=== PATIENT | male | born 1950 | race Caucasian/White ===

== ENCOUNTER 2019-04-28 08:31 | Inpatient (IN) ==
--- NOTE | 2019-04-28 09:09 | EKG Report ---
Test Performed on : 04/28/2019 09:04:58 AM Test Reason : sob Blood Pressure : / mmHG Vent. Rate : 081 BPM Atrial Rate : 081 BPM P-R Int : 142 ms QRS Dur : 116 ms QT Int : 432 ms P-R-T Axes : 110 027 153 degrees QTc Int : 501 ms Normal sinus rhythm. ST & T wave abnormality, consider inferolateral ischemia Prolonged QT Abnormal ECG When compared with ECG of 27-JUN-2018 13:19, Nonspecific T wave abnormality has replaced inverted T waves in Inferior leads Nonspecific T wave abnormality has replaced inverted T waves in Anterior leads QT has lengthened Unconfirmed Result
[2019-04-28 09:35] LABS: BASO# 0.03 X1000 (0.0-0.2); BASO% 0.3 % (0.0-0.8); EOS# 0.24 X1000 (0.0-0.7); EOS% 2.5 % (0.0-10.0); HEMATOCRIT 46.4 % (42.0-52.0); HEMOGLOBIN 15.3 g/dL (14.0-18.0); LYMPH# 1.26 X1000 (1.2-3.4); LYMPH% 12.9 % (20.5-51.1); MCH 28.7 PG (27-31); MCV 86.9 FL (81-99); MONO# 1.04 X1000 (0.11-0.59); MONO% 10.7 % (1.7-9.3); MPV 10.6 FL (7.4-10.4); NEUT# 7.16 X1000 (1.4-6.5); NEUT% 73.6 % (42.2-75.2); PLT 198 X1000 (130-400); RBC 5.34 XMIL (4.7-6.1); RDW 13.1 % (11.5-14.5); WBC 9.73 X1000 (4.8-10.8)
[2019-04-28 09:41] LABS: INR 1.12; PROTIME 14.5 Seconds (11.0-16.0)
[2019-04-28 09:42] LABS: PTT 29.1 Seconds (22.3-41.8)
--- NOTE | 2019-04-28 09:47 | Diag Imaging Result Doc PS360 ---
CHEST-1 VIEW - 04/28/2019 INDICATION: sob COMPARISON: 06/28/2018 FINDINGS: Stable sternotomy wires. There is mild cardiomegaly and today's exam. Pulmonary vascularity is grossly normal. No infiltrates or significant edema. Lungs are somewhat hyperexpanded suggesting COPD. IMPRESSION: Cardiomegaly. Mild COPD. Electronically signed by Clarence Coats 04/28/2019 9:45 AM
[2019-04-28 10:04] LABS: ALB/GLOB RATIO 1.4; ALBUMIN 4.1 g/dL (3.5-5.0); CREATININE 1.5 mg/dL (0.7-1.2); POTASSIUM 4.2 mmol/L (3.5-5.1); TOTAL BILIRUBIN 0.91 mg/dL (0.20-1.00)
[2019-04-28] MEDS: LASIX IV ONE ×3 (10:48→10:54)
[2019-04-28] MEDS ORDERED: DUONEB (A & A) INH ONE (11:01)
--- NOTE | 2019-04-28 11:09 | PROVIDER DOCUMENTATION ---
This chart was entered by Yanely Mckeon Scribe, acting as scribe for Daniel Ayers MD. HPI-Respiratory General - General Chief Complaint: Shortness of Breath Stated Complaint: SOB,CHF Time Seen by Provider: 04/28/19 09:12 Source: patient Allergies/Adverse Reactions: Patient Allergies Allergy/AdvReac Type Severity Reaction Status Date / Time Penicillins Allergy Unknown Verified 04/28/19 09:25 Home Medications: Home Medication List Medication Instructions Recorded Confirmed Last Taken Type Insulin Glargine [Basaglar] 12 unit SUBQ BID #1 insuln.pen 02/11/18 04/28/19 06/25/18 20:00 Rx Aspirin 81 mg PO DAILY #30 chewtab 03/01/18 04/28/19 06/25/18 07:00 Rx Carvedilol [Coreg] 6.25 mg PO Q12HR #60 tab 06/28/18 04/28/19 Unknown Rx Furosemide [Lasix] 40 mg PO DAILY #90 tab 06/28/18 04/28/19 Unknown Rx LISINOpril [Prinivil] 10 mg PO DAILY #90 tab 06/28/18 04/28/19 Unknown Rx Insulin Glargine,Hum.rec.anlog 6 units SQ QHS 04/28/19 04/28/19 Unknown History [Lantus Solostar] - History of Present Illness-Resp Nature of Presenting Problem: 69 yom presents to the ed with worsening sob with exertion. pt sts has hx of CHF and COPD and has O2 @ home but has noted last few days he has been wearing more often. pt on exam is nontoxic in appearance Quality of Pain: reports: none Severity in ED: reports: mild Onset/Duration: reports: 3 days ago Timing: reports: intermittent, getting worse Exposure: reports: unknown cause Cough Quality/Degree: reports: no cough Episode Frequency: frequent episodes Current Respiratory Medication Therapy: Initiated see nurses note Modifying Factors: improves with: oxygen, rest, sitting upright. worse with: exertion Associated Symptoms: reports: shortness of breath, wheezing. denies: chest pain/soreness, cough, fever/chills, heart racing Similar Symptoms Previously?: Yes (hx of chf and copd) Recently seen or treated by another doctor?: No Review of Systems - Adult - REVIEW OF SYSTEMS - ADULT Constitutional: denies: chills, fever Eyes: reports: no symptoms reported Ears, Nose, Mouth & Throat: reports: no symptoms reported Cardiovascular: denies: chest pain, palpitations, syncope Respiratory: reports: see HPI, dyspnea on exertion, shortness of breath, wheezing. denies: cough Gastrointestinal: denies: abdominal pain, diarrhea, nausea, vomiting Genitourinary: reports: no symptoms reported Musculoskeletal: reports: no symptoms reported Integumentary: reports: no symptoms reported Neurological: denies: dizziness/vertigo, headache/migraines Psychiatric: reports: no symptoms reported Endocrine: reports: no symptoms reported Hematologic/Lymphatic: reports: no symptoms reported Allergic/Immunologic: reports: no symptoms reported All Other Systems: Reviewed and Negative Past History - Adult - PAST MEDICAL HISTORY-ADULT Review of Records: reports: Old Records Reviewed, Nursing Assessment Review, Medications Reviewed, Social history reviewed & non-contributory. Major Childhood Illnesses: reports: denies history Cardiovascular: reports: CAD, CHF, HTN, hyperlipidemia, [place] Respiratory: reports: COPD Gastrointestinal: reports: denies history Genitourinary: reports: denies history Musculoskeletal: reports: denies history Hand Dominance: Right Handed Neurological: reports: denies history Psychiatric: reports: denies history Endocrine/Immune: reports: Diabetes Diabetes Type: Type 2 Other Conditions: reports: denies history - PRIOR SURGERIES/PROCEDURES Surgical/Procedure History: reports: appendectomy, CABG, cardiac stent, tonsillectomy, orthopedic (extremity) - IMMUNIZATION STATUS Childhood Immunizations: See Nurse Assessment Flu Vaccine: See Nurse Assessment - FAMILY HISTORY Family History: reviewed, not pertinent - SOCIAL HISTORY Smoking: quit greater than 1 year Substance Use: alcohol Alcohol Use Frequency: once a week Number of drinks per typical drinking period:: 2 drinks Living Situation: family Physical Exam-General - PHYSICAL EXAM-ADULT Initial Vital Signs Reviewed: Yes - CONSTITUTIONAL General Appearance: appears well, alert, no apparent distress - EYES Eyes: PERRL/EOMI, pink conjunctivae - HEAD, EARS, NOSE, MOUTH & THROAT HENMT: moist mucous membranes - NECK Neck: non-tender, full range of motion, supple, normal inspection - RESPIRATORY Respiratory: chest non-tender, wheezing (rt side only) - CARDIOVASCULAR Cardiovascular: normal peripheral pulses, regular rate, rhythm - CHEST (BREASTS) Chest/Breast: other (well healed CABG scar) - GASTROINTESTINAL (ABDOMEN) Abdominal Exam: normal bowel sounds, non tender, soft, no organomegaly, no pulsatile mass - GENITOURINARY Male Genitalia: deferred Rectal Exam: deferred Hemoccult Exam: deferred - LYMPHATIC Lymphatic: no adenopathy - MUSCULOSKELETAL Back Exam: normal inspection, no CVA tenderness, no vertebral tenderness Extremity: normal range of motion, non-tender, normal gait, normal inspection, no pedal edema, no calf tenderness, normal capillary refill - SKIN Integumentary: normal color, normal turgor, warm/dry - NEUROLOGIC Neurologic: grossly normal - PSYCHIATRIC Psych/Mental Status: normal mood/affect, normal thought content, normal thought process, oriented x 3 - HEART Score HEART Score: History: Slightly Suspicious HEART Score: ECG: Non-Specific Repolarization Disturbance/LBBB/PM HEART Score: Age: > or = 65 Years HEART Score: Risk Factors for Atherosclerotic Disease: > or = 3 Risk Factors or History of Atherosclerotic Disease HEART Score: Troponin: < or = Normal Limit Total HEART Score:: 5 Progress - PLAN OF CARE/RESULTS Progress/Plan/Lab Results: Vital Signs - 8 hr 04/28/19 08:37 04/28/19 09:07 04/28/19 09:21 Temperature 97.8 F Pulse Rate 88 85 Respiratory Rate 20 19 Blood Pressure 187/94 191/122 O2 Sat by Pulse Oximetry 93 L 93 L 92 L 04/28/19 09:30 04/28/19 09:31 04/28/19 09:40 Temperature Pulse Rate 83 81 78 Respiratory Rate 27 H 23 22 Blood Pressure 173/105 173/105 O2 Sat by Pulse Oximetry 96 97 98 Laboratory Results - last 24 hr 04/28/19 04/28/19 04/28/19 09:20 09:20 09:20 WBC 9.73 RBC 5.34 Hgb 15.3 Hct 46.4 MCV 86.9 MCH 28.7 MCHC 33.0 RDW Std Deviation 13.1 Plt Count 198 MPV 10.6 H Immature Gran % (Auto) 0.0 Neut % (Auto) 73.6 Lymph % (Auto) 12.9 L Greenlee % (Auto) 10.7 H Eos % (Auto) 2.5 Baso % (Auto) 0.3 Immature Gran # (Auto) 0.00 Neut # (Auto) 7.16 H Lymph # (Auto) 1.26 Greenlee # (Auto) 1.04 H Eos # (Auto) 0.24 Baso # (Auto) 0.03 PT INR PTT (Actin FS) Sodium 138 Potassium 4.2 Chloride 97 L Carbon Dioxide 28 Anion Gap 13 BUN 16 Creatinine 1.5 H Estimated GFR/1.73 m2 47 BUN/Creatinine Ratio 11 Glucose 145 H Calculated Osmolality 279 Calcium 9.0 Total Bilirubin 0.91 AST 11 ALT 14 Alkaline Phosphatase 81 Troponin T [id number] Pept 8941 H Total Protein 7.0 Albumin 4.1 Globulin 2.9 Albumin/Globulin Ratio 1.4 04/28/19 04/28/19 09:20 09:20 WBC RBC Hgb Hct MCV MCH MCHC RDW Std Deviation Plt Count MPV Immature Gran % (Auto) Neut % (Auto) Lymph % (Auto) Greenlee % (Auto) Eos % (Auto) Baso % (Auto) Immature Gran # (Auto) Neut # (Auto) Lymph # (Auto) Greenlee # (Auto) Eos # (Auto) Baso # (Auto) PT 14.5 INR 1.12 PTT (Actin FS) 29.1 Sodium Potassium Chloride Carbon Dioxide Anion Gap BUN Creatinine Estimated GFR/1.73 m2 BUN/Creatinine Ratio Glucose Calculated Osmolality Calcium Total Bilirubin AST ALT Alkaline Phosphatase Troponin T 0.055 [id number]-Zlvqrvimqek Pept Total Protein Albumin Globulin Albumin/Globulin Ratio Orders Category Date Time Status CHEST-1 VIEW [RAD] Stat Exams 04/28/19 09:06 Completed CBC WITH ELECTRONIC DIFF [HEME] Stat Lab 04/28/19 09:20 Completed COMPREHENSIVE METABOLIC PANEL [CHEM] Stat Lab 04/28/19 09:20 Completed PRO B-NATRIURETIC PEPTIDE Stat Lab 04/28/19 09:20 Completed PROTIME WITH INR [COAG] Stat Lab 04/28/19 09:20 Completed PTT [COAG] Stat Lab 04/28/19 09:20 Completed TROPONIN T Stat Lab 04/28/19 09:20 Completed TROPONIN T Stat Lab 04/28/19 11:04 Ordered Albuterol 2.5MG/Ipratrop 0.5MG [Duoneb (A & A)] Med 04/28/19 11:01 Discontinued 3 ml INH NOW ONE Furosemide [Lasix] Med 04/28/19 10:35 Discontinued 40 mg IV NOW ONE Aerosol Treatments Routine Oth 04/28/19 11:01 Active Aerosol Treatments Stat Oth 04/28/19 11:01 Active EKG [EKG] Stat Ther 04/28/19 09:06 Draft Result Diagrams: 04/28/19 09:20 04/28/19 09:20 - REASSESSMENT Reassessment #1 Time Reassessed: 10:33 Status: improving - EKG 1 Time of EKG reading by physician:: 09:04 EKG Read and Signed by:: Daniel Ayers EKG Interpretation (*Must complete 3 of following elements*): Abnormal Rate: 81 Rhythm: nsr Holstein: normal QRS: other (prolonged QT) NV Interval: normal Comments: st and t wave abnormality, consider inferolateral ischemia - XRAY 1 XRAY: Bilateral XRAY Study: Chest Impression: See EMR Report (CHEST-1 VIEW - 04/28/2019 INDICATION: sob COMPARISON: 06/28/2018 FINDINGS: Stable sternotomy wires. There is mild cardiomegaly and today's exam. Pulmonary vascularity is grossly normal. No infil trates or significant edema. Lungs are somewhat hyperexpanded suggesting COPD. IMPRESSION: Cardiomegaly. Mild COPD. Electronically signed by Clarence Coats 04/28/2019 9:45 AM 04/28/19 0945 Interpreting Physician: Clarence Coats MD Dictated Date/Time: 04/28/19943 cc: Daniel Ayers MD; Scotty Aguilar MD) - CONSULTS/PCP/HOSPITALIST Notification #1 *Consult/PCP/Hospitalist*: hospitalist dr ortiz Time Discussed: 11:03 Consult Disposition: Will see in ED, Admit Departure - Departure Date of Disposition Decision: 04/28/19 Time of Disposition Decision: 11:09 DIAGNOSIS: Acute exacerbation of CHF (congestive heart failure), CAD (coronary artery disease), Dyspnea on exertion, COPD (chronic obstructive pulmonary disease) Disposition: ADMITTED INPATIENT 09 Certified Medical Emergency: Emergent Condition: Fair Referrals and Follow-Ups: Scotty Aguilar MD [Primary Care Provider] - - Critical Care Note This patient required my direct & personal management of CC.: No Attestation - Physician/ ALVIN Attestation Patient care was provided by Advanced Practice Provider:: No The physician spent face to face time with patient:: Yes Advanced Practice Provider documentation review:: Supervising physician onsite and consulted in the evaluation and care of this patient. The physician did have a face to face encounter with the patient. This chart was documented by the indicated scribe, (Yanely Mckeon Scribe) and accurately reflects the services I performed and decisions made by me, Daniel Ayers MD, as attested by the provider's signature.
--- NOTE | 2019-04-28 12:24 | HISTORY AND PHYSICAL ---
PRIMARY CARE PHYSICIAN: Dr. Scotty Aguilar. CHIEF COMPLAINT: Shortness of breath that worsens with exertion over the past several days that progressively worsened. HISTORY OF PRESENTING ILLNESS: This is a 69-year-old male who presents to [facility] with complaints of worsening shortness of breath over the last few days that is worse with exertion. Has home O2 as needed and has noted over the past couple of days has been wearing it more often. Has a history of congestive heart failure and COPD. Workup showed a proBNP of 8941 which is up from his last in June 2018, was 1202. His previous echocardiogram was done on 06/26/2018 that showed an ejection fraction of 25 to 30 percent with severely reduced systolic function. He noted some abdominal distention and weight gain over the last several days as well, so he will be admitted for further evaluation and treatment. PAST MEDICAL HISTORY: CAD, CHF, diabetes type 2, hypertension, chronic kidney disease, and COPD. PAST SURGICAL HISTORY: CABG, tonsillectomy, appendectomy, and bilateral knee arthroscopy. FAMILY HISTORY: Coronary artery disease in his father. SOCIAL HISTORY: Currently lives with family, is a former smoker and denies any alcohol or illicit drug use. ALLERGIES: Penicillin. HOME MEDICATIONS: Current list will be obtained, reconciled, reviewed and restarted as appropriate. LABORATORY DATA: Showed a white blood cell count of 9.73, hemoglobin 15.3, hematocrit 46.4, platelets 198,000. PT and INR of 14.5 and 1.12. Sodium 138, potassium 4.2, chloride 97, CO2 28, BUN of 16, creatinine 1.5, glucose 145. Troponin was 0.055. ProBNP of 8941. IMAGING: Chest x-ray showed cardiomegaly and mild COPD. EKG showed normal sinus rhythm at 81. REVIEW OF SYSTEMS: He denied any fever, chills, blurred vision, dizziness, chest pain, coughing. He was positive for shortness of breath that worsened with exertion. Denied any abdominal pain but has noted some abdominal distention. Denied any nausea, vomiting, constipation, diarrhea, burning or hurting with urination. PHYSICAL EXAMINATION: VITAL SIGNS: On arrival, had a temperature of 97.8 degrees, pulse 88, respirations 20, blood pressure 187/94, saturating 93% on room air. GENERAL: This is a 69-year-old male who is lying in the bed and answers questions appropriately. HEENT: Normocephalic, atraumatic. Normal ENT inspection. Oropharynx and nares are clear. EYES: Pupils are equal, round, and reactive to light and accommodation. Extraocular movements are intact. NECK: Normal inspection, normal range of motion. LUNGS: Clear to auscultation bilaterally with equal lung expansion and chest wall movement. HEART: Regular rate and rhythm. No murmurs, rubs, or gallops. ABDOMEN: Soft. It was mildly distended, mildly firm. Bowel sounds were present x4 quadrants. MUSCULOSKELETAL: He had 5/5 strength x4 extremities. NEUROLOGICAL: The cranial nerves 2-12 appear grossly intact. ASSESSMENT: 1. An acute systolic congestive heart failure exacerbation. 2. Malignant hypertension. 3. Diabetes type 2. 4. Chronic obstructive pulmonary disease, history of, not in exacerbation currently. PLAN: He will be admitted, placed on telemetry, O2 per protocol, healthy heart diet. We will check an echocardiogram today. Apply SCDs for DVT prophylaxis. Place him on Lasix 40 mg IV q.12. We will continue home medications. Place him on hydralazine 10 mg IV q.4 hours p.r.n. for systolic greater than 190, diastolic greater than 100, and will recheck a CBC, BMP in the a.m. Further orders after seen by attending. Dictated by TAQUERIA Braga for Andrew Silva MD cc: TAQUERIA Braga MD Wayne E. Thomas, MD
[2019-04-28] MEDS ORDERED: ZOFRAN IV PRN (12:33)
[2019-04-28] MEDS ORDERED: TYLENOL PO PRN (12:33)
[2019-04-28] MEDS ORDERED: APRESOLINE IV PRN (12:33)
[2019-04-28] MEDS: LASIX IV SCH ×2 (12:53→21:06)
[2019-04-28] MEDS ORDERED: COZAAR PO SCH (16:15)
--- NOTE | 2019-04-28 17:46 | CARDIOLOGY CONSULTATION ---
DATE: 04/28/2019 CHIEF COMPLAINT ON PRESENTATION: Shortness of breath. HISTORY OF PRESENT ILLNESS: Mr. Weber is a 69-year-old male with a history of an ischemic cardiomyopathy, who for the last month has been having more shortness of breath than baseline. He reports that over the last 24 to 48 hours it has gotten significantly worse, such that last night he had to get up and sit in the recliner because he was getting short of breath lying in bed. He denies any overt chest pain. He has not been compliant with his lisinopril in the last 3 days secondary to cough. He has continued to take his diuretic and his Coreg. There has been some dietary indiscretion, specifically with eating a hamburger that was marinated in Bernardo's sauce on Saturday evening. PAST MEDICAL HISTORY: 1. Significant for ischemic cardiomyopathy. He has a history of coronary bypass performed in 2013 with a vein graft to the LAD, vein graft to a D1, and a vein graft to an OM 1. He has not had a catheterization since that time. His last stress test was in November of 2015. This was a rest study showing an EF of 63%. No evidence of systolic dysfunction or diastolic dysfunction identified. Echocardiogram in February of 2018 showed an EF of 40 to 45%. 2. Hypertension. 3. Hyperlipidemia. 4. Diabetes. 5. History of chronic kidney disease. SOCIAL HISTORY: Former smoker. Denies any alcohol or illicit drugs. FAMILY HISTORY: Coronary disease in his father. REVIEW OF SYSTEMS: A 10 system review of systems is negative except for those things mentioned in the HPI. PHYSICAL EXAMINATION: Vital Signs: Patient is afebrile. Heart rate of 81. His blood pressure is 179/88. His presenting blood pressure here was 187/94. General: He is in no acute distress. HEENT: Oropharynx is moist. Poor dentition. Eye examination shows pink conjunctivae, white sclerae. Neck: Examination shows no obvious thyromegaly or thyroid tenderness. Cardiovascular: He sounds to be in a regular rate and rhythm. He has no obvious murmurs. He has no S3. He has no lower extremity edema. His neck veins do appear to be somewhat distended. Chest: Sounds relatively clear. He has no increased work of breathing. Abdomen: Soft, nontender, nondistended. He has no obvious organomegaly. Skin: Warm and dry throughout without any rashes. Neurological: He is moving all extremities well. He has no lateralizing deficits. Psychiatric: Alert, oriented, pleasant. Normal mood and affect. PERTINENT DATA: His chest x-ray shows cardiomegaly with mild COPD changes. His electrocardiogram demonstrates a sinus rhythm, nonspecific diffuse ST-T changes. They are most likely consistent with LVH type changes. This does not look significantly different from previous EKG in 2018. His laboratory data demonstrates a white count of 9.7, hematocrit 46, platelet count 198,000. His INR is 1.1. His sodium is 138, potassium 4.2, BUN 16, creatinine is 1.5. His proBNP is 8,941. Cardiac enzymes negative thus far. ASSESSMENT: Mr. Weber is a 69-year-old gentleman with a history of ischemic cardiomyopathy. He presents in acute heart failure. PLAN: He has been changed from lisinopril to losartan which I agree with given his, what sounds like LETY inhibitor induced allergy. His last ejection fraction was above 40% by echo so he does not qualify for Entresto at this time. But we will recheck an echocardiogram. I would recommend continuation of his beta eva as he is already on. IV diuretics have been ordered, as well as the Aldactone. Laboratories checked in the morning including a proBNP. cc: Maninder Sanches MD
--- NOTE | 2019-04-28 18:53 | HISTORY AND PHYSICAL ---
ADDENDUM: I have seen and examined Mr. Michaels today. The son was at the bedside at the time of the encounter. Mr. Michaels gets admitted because of worsening shortness of breath associated with exertion and also PND and orthopnea. He was brought into the Emergency. He came to the emergency department himself today where he was also found to be remarkably hypertensive with a blood pressure of 187/94. He was saturating in the 93. Initial imaging studies revealed that his chest x-ray shows some mild pulmonary congestion and cardiomegaly. His pro B is remarkably elevated ever than before. Mr. Michaels is being admitted for congestive heart failure exacerbation. He also has a history of severe coronary artery disease status post CABG. The neck was supple with mild JVD. Chest - air entry was bilaterally reduced. There was some diffuse crackles in posterior lung arnold. Cardiovascular - regular rate and rhythm. I did not hear any murmur. There is an old sternotomy scar on the anterior abdominal wall. Abdomen was soft, distended but nontender. Extremities - there was no pedal edema. Good perfusion. Laboratory data has been reviewed. CBC is completely unremarkable. Chemistry shows creatinine of 1.5 which is his baseline. The pro B is 8941. ASSESSMENT: 1. Acute hypoxemic respiratory distress secondary to pulmonary edema. 2. Acute on chronic congestive heart failure. 3. Chronic cough, most likely due to angiotensin-converting enzyme inhibitor therapy. We have changed the lisinopril to losartan. 4. Severe uncontrolled hypertension. The patient's lisinopril has been changed to losartan. We have also started him back on his carvedilol and we have added spironolactone for a better blood pressure control. 5. History of coronary artery disease status post coronary artery bypass graft. 6. Ischemic cardiomyopathy, status post coronary artery bypass graft. The patient follows up with Dr. Quigley. 7. The patient is also a diabetic and up upon his review we have not seen him on any statin medications, so we have added Crestor. 8. Chronic kidney disease stage 3a to b noted. Please refer to the details of the H P which has been dictated by the CHOREOGRAPHY DIRECTOR in the chart. I have reviewed it and I agree with the content. I have also explained my findings and the plan with the patient and the son who were both at the bedside at the time of the encounter. cc: Andrew Silva MD
[2019-04-28] MEDS: ALDACTONE PO SCH (19:20)
[2019-04-28] MEDS: COREG PO SCH (20:30)
[2019-04-28] MEDS ORDERED: ENTRESTO 24 MG-26 MG TABLET PO SCH (21:00)
[2019-04-28] MEDS ORDERED: LANTUS INSULIN SUBQ SCH (21:00)
[2019-04-28] MEDS: LANTUS INSULIN SUBQ SCH (21:06)
[2019-04-29 06:41] LABS: BASO# 0.03 X1000 (0.0-0.2); BASO% 0.4 % (0.0-0.8); EOS# 0.31 X1000 (0.0-0.7); EOS% 3.8 % (0.0-10.0); HEMATOCRIT 46.5 % (42.0-52.0); HEMOGLOBIN 15.4 g/dL (14.0-18.0); LYMPH% 24.5 % (20.5-51.1); MCH 28.9 PG (27-31); MCHC 33.1 g/dL (33-37); MCV 87.4 FL (81-99); MONO# 1.12 X1000 (0.11-0.59); MONO% 13.7 % (1.7-9.3); MPV 10.6 FL (7.4-10.4); NEUT# 4.71 X1000 (1.4-6.5); NEUT% 57.6 % (42.2-75.2); PLT 216 X1000 (130-400); RBC 5.32 XMIL (4.7-6.1); RDW 13.1 % (11.5-14.5); WBC 8.17 X1000 (4.8-10.8)
[2019-04-29 07:06] LABS: CALCIUM 8.4 mg/dL (8.8-10.2); CREATININE 1.7 mg/dL (0.7-1.2); POTASSIUM 3.5 mmol/L (3.5-5.1)
[2019-04-29] MEDS ORDERED: PRINIVIL PO SCH (09:00)
[2019-04-29] MEDS ORDERED: COZAAR PO SCH ×2 (09:00)
--- NOTE | 2019-04-29 09:04 | ECHO REPORT ---
ORDER DATE: 04/28/2019 MEASUREMENTS: Septal thickness 1.4, left ventricular internal diameter in diastole 5.2, aortic root 2.9, left atrium 4.4. SUMMARY: 1. Technically difficult study due to limited acoustic window quality. 2. Aortic valve is trileaflet and opens normally on 2-dimensional images. The peak gradient across the aortic valve is less than 5 mmHg. Mitral and tricuspid valves are without evidence of structural abnormality with very mild mitral regurgitation. The pulmonic valve was not well demonstrated. The aortic root is normal in size. 3. Normal left ventricular chamber size with [id number] concentric left ventricular hypertrophy is demonstrated. Estimated left ventricular ejection fraction is approximately 20% in the setting of severe global hypokinesis. Doppler suggests grade 1 left ventricular diastolic function. The left atrium is mildly enlarged. The right atrium and right ventricle are normal in size with grossly preserved right ventricular systolic function. 4. No pericardial effusion. 5. Appearance of the inferior vena cava suggests normal central venous pressure. cc: MD Yashira Brown CRNP
[2019-04-29] MEDS: LASIX IV SCH (10:05)
[2019-04-29] MEDS: ASPIRIN PO SCH (10:07)
[2019-04-29] MEDS: COREG PO SCH ×2 (10:08→20:42)
[2019-04-29] MEDS: ALDACTONE PO SCH (10:08)
[2019-04-29] MEDS: CRESTOR PO SCH (10:09)
--- NOTE | 2019-04-29 13:36 | CARDIOLOGY PROGRESS NOTE ---
DATE: 04/29/2019 SUBJECTIVE: Mr. Michaels reports that he feels better. He is not having any orthopnea. The patient is lying down at this point and denies any overt orthopnea. He has no lower extremity edema. PHYSICAL EXAMINATION: Vital Signs: He is afebrile. Heart rate is 73, blood pressure 139/74. His input and output do not appear to be accurate, as there are a number of voids not measured, not counted for. General: No acute distress. Cardiovascular: He sounds to be in a regular rate and rhythm. He has no murmurs. He has no S3. He has no lower extremity edema. Chest: His chest exam sounds clear bilaterally. He has no increased work of breathing. Abdomen: His abdomen is soft, nontender, nondistended. He has no obvious organomegaly. PERTINENT DATA: His sodium is 138, potassium 3.5, BUN 20, creatinine is 1.7. His proBNP is 7590, which is down from 8941. His echocardiogram yesterday demonstrated an EF of 20% with severe global hypokinesis. ASSESSMENT: Mr. Weber is a 69-year-old gentleman with a history of an ischemic cardiomyopathy. PLAN: We will continue on current medications with the exception of I have stopped the losartan and changed him over to Entresto based on his reduced EF. We will continue him on the Coreg, as well as his spironolactone. Laboratories checked will be checked in the morning. It would likely be reasonable to discharge him in the morning if he continues on this trended. cc: Maninder Sanches MD
--- NOTE | 2019-04-29 15:43 | PROGRESS NOTE ---
DATE: 04/29/2019 SUBJECTIVE: This morning Mr. Weber refers to be doing a lot better. Denies any new complaints. OBJECTIVE: Vital signs: Blood pressure is 139/74, pulse of 73, respiration is 19, temperature 97.7 degrees. The patient is saturating 94% on room air. General: Mr. Weber is a 69-year- old gentleman. He is in bed, not seemingly distressed. HEENT: Mucosa is pink and moist. Anicteric. Acyanotic. Neck: Supple. Chest: Good air entry bilateral. There were no crepitations, no rhonchi. Cardiovascular: Regular rate and rhythm. No murmurs, no rubs, no gallops. GI: Abdomen was soft, nontender. Bowel sounds present. Extremities: No pedal edema. LINUX SYSTEM ADMIN: Patient is awake, alert, and oriented. Musculoskeletal: The patient does have does have an old sternotomy scar on the anterior chest wall. LABORATORY DATA: CBC is normal. Creatinine is slightly up to 1.7. His pro B is down to 7590. An echocardiogram which was done yesterday report shows ejection fraction is 20% in the setting of global hypokinesis. There is a Doppler that suggests grade 1 left ventricle dysfunction. Left atrium is mildly enlarged. The right side seems to be unremarkable. CURRENT MEDICATIONS: Have also been reviewed. The patient's Lasix has been decreased to once daily dosing. Losartan has been changed to Entresto. ASSESSMENT: 1. Acute hypoxemic respiratory failure on presentation, secondary to pulmonary edema, improved. 2. Acute on chronic congestive heart failure. Ejection fraction is 20%. The patient has been switched to Entresto. We will continue with the other heart medications. 3. Chronic cough, suspected to be due to LETY inhibitor [lisinopril] side effects. Medication has been discontinued. 4. Severe uncontrolled hypertension on presentation. The patient's admission blood pressure was 187/94. It actually went at some point to 191/122. This has gradually been titrated down. His current blood pressure is 139/74. We are going to continue with the current medications including Entresto, Coreg, and spironolactone. 5. History of coronary artery disease status post CABG noted. 6. Dyslipidemia. Patient is on Crestor. 7. Diabetes mellitus on Lantus at home. Glucose within normal ranges. 8. CKD stage 3A noted. PLAN: In general, Mr. Weber got admitted because of shortness of breath, has been found to be in congestive heart failure. He is currently on IV diuretic therapy. His lisinopril has been switched to Entresto currently. His blood pressure was also extremely high on presentation which has progressively gotten better. Cardiology recommends to observe him one more day on the new regimen and if he continues to tolerate it and is hemodynamically stable, then he will be okay to be discharged tomorrow. Mr. Weber's pro B has decreased as well. cc: Andrew Silva MD
[2019-04-29] MEDS: LANTUS INSULIN SUBQ SCH (20:43)
[2019-04-30 07:44] LABS: AGAP 16; BUN 29 mg/dL (8-22); CHLORIDE 96 mmol/L (98-107); CHOLESTEROL 182 mg/dL (0-200); COSMO 280; CREATININE 1.7 mg/dL (0.7-1.2); ESTIMATED GFR 40; GLUCOSE 137 mg/dL (70-104); HDL 29 mg/dL (35-55); LDL 133 mg/dL; MAGNESIUM 2.2 mg/dL (1.5-2.7); POTASSIUM 3.6 mmol/L (3.5-5.1); SODIUM 136 mmol/L (136-145); TCO2 24 mmol/L (25-35); TRIGLYCERIDES 102 mg/dL (39-160); VLDL 20 mg/dL
[2019-04-30] MEDS ORDERED: LASIX IV SCH (09:00)
[2019-04-30] MEDS ORDERED: ENTRESTO 24 MG-26 MG TABLET PO SCH (09:00)
[2019-04-30] MEDS: CRESTOR PO SCH (09:21)
[2019-04-30] MEDS: ALDACTONE PO SCH (09:21)
[2019-04-30] MEDS: ASPIRIN PO SCH (09:21)
[2019-04-30] MEDS: COREG PO SCH (09:21)
[2019-04-30 16:06] VITALS: BP 145/84
[2019-04-30] MEDS ORDERED: ENTRESTO 49 MG-51 MG TABLET PO SCH (21:00)
--- NOTE | 2019-04-30 21:31 | CARDIOLOGY PROGRESS NOTE ---
DATE: 04/30/2019 SUBJECTIVE: Mr. Weber has no complaints. His breathing is much better. He is not having any orthopnea. OBJECTIVE: He is afebrile. Heart rate 71, blood pressure 139/76. General: He is in no acute distress. Cardiovascular: He sounds to be in a regular rate and rhythm. He has no obvious murmurs. He has no S3. No lower extremity edema. Chest: Sounds clear bilaterally. He has no increased work of breathing. Abdomen: Soft, nontender. PERTINENT DATA: Sodium is 136, potassium 3.6, BUN 29, creatinine is 1.7. His proBNP is 2306, which is down from 8941 on presentation. His LDL is 133. ASSESSMENT: Mr. Weber is a 69-year-old male who presented in a heart failure exacerbation that was likely secondary to noncompliance with his lisinopril secondary to cough as well as dietary sodium excess. PLAN: The patient was discontinued off his lisinopril, which again he had not been taking for a few days. He was initiated on Entresto. His carvedilol and spironolactone were continued. He was placed on IV diuretics. The patient diuresed quite well. Presently, he is stable for discharge. I have discussed this with the primary team. He will have a followup basic metabolic panel in one week and will follow up with Dr. Quigley in three to four weeks. cc: Maninder Sanches MD
--- NOTE | 2019-05-01 05:38 | DISCHARGE SUMMARY ---
ADMISSION DATE: 04/28/2019 DISCHARGE DATE: 04/30/2019 PRIMARY CARE PHYSICIAN: Dr. Scotty Aguilar. CONSULTATIONS: Cardiology. ADMISSION DIAGNOSES: 1. An acute systolic congestive heart failure exacerbation. 2. Malignant hypertension. 3. Diabetes type 2. 4. History of chronic obstructive pulmonary disease, not currently in exacerbation. DISCHARGE DIAGNOSES: 1. Acute hypoxemic respiratory failure on presentation secondary to pulmonary edema, improved. 2. An acute on chronic congestive heart failure. 3. Chronic cough, suspected to be due to an LETY inhibitor lisinopril side effects. 4. Severe, uncontrolled hypertension on presentation. 5. Dyslipidemia. 6. Diabetes type 2. 7. Chronic kidney disease stage III-A. SUMMARY OF FINDINGS: This is a 69-year-old male who presented to the emergency room with complaints of shortness of breath over the last few days that worsened with exertion. Has home O2 as needed and has noted over the past couple of days needing to use it more. His proBNP was 8941. His previous echocardiogram done on 06/26/2018 showed an ejection fraction of 25 to 30 percent with severely reduced systolic function. He was noted to have some abdominal distention and weight gain over the past several days. Blood pressure was elevated at 187/94 on arrival. He was admitted. We consulted Cardiology, obtained an echocardiogram that showed an ejection fraction approximately 20% in the setting of severe global hypokinesis, normal left ventricular chamber size with [id number] concentric left ventricular hypertrophy was demonstrated. He was diuresed well. Cardiology stopped the losartan and changed him to Entresto based on his reduced EF, continued him on his Coreg as well as his spironolactone. He is feeling much better and it is felt that he can safely be discharged home today. DISCHARGE MEDICATIONS: Include aspirin 81 mg p.o. daily, Coreg 6.25 mg p.o. q.12 hours, Lantus 6 units subcutaneous at bedtime, rosuvastatin 20 mg p.o. daily, Entresto 49/51 mg p.o. b.i.d., Aldactone 12.5 mg p.o. daily, Lasix 40 mg p.o. daily. FOLLOWUP: He will follow up with Dr. Maninder Sanches, preflight mechanic, on 06/03/2019 at 2:15 p.m. and with his primary care physician in the next 1 to 2 weeks and call their office for an appointment. All discharge instructions have been reviewed with the patient. He verbalized understanding. TIME SPENT: A 35 minute discharge. Dictated by TAQUERIA Braga for Jeffery Bo MD cc: TAQUERIA Braga MD Wayne E. Thomas, MD Peter Johnson, MD
== END 2019-04-30 16:45 | disposition home or self-care (01) | DRG 291 ==
LOC: ED 08:31 → SUATTDRO 12:06 → EDIPHOLD 12:06 → 4N 13:44
PROVIDERS: ATTEND Internal Medicine

== ENCOUNTER 2019-07-07 22:23 | Inpatient (IN) ==
[2019-07-07] MEDS ORDERED: ASPIRIN PO ONE (22:49)
[2019-07-07] MEDS ORDERED: HUMULIN R IV ONE (22:56)
[2019-07-07] MEDS ORDERED: LASIX IV ONE (22:56)
[2019-07-07 23:03] LABS: BASO# 0.04 X1000 (0.0-0.2); BASO% 0.4 % (0.0-0.8); EOS# 0.36 X1000 (0.0-0.7); EOS% 3.2 % (0.0-10.0); HEMATOCRIT 45.8 % (42.0-52.0); HEMOGLOBIN 15.9 g/dL (14.0-18.0); IMM GRAN# 0.02 X1000 (0.0-0.04); IMM GRAN% 0.2 % (0.0-0.5); LYMPH# 2.63 X1000 (1.2-3.4); LYMPH% 23.6 % (20.5-51.1); MCH 28.6 PG (27-31); MCHC 34.7 g/dL (33-37); MCV 82.4 FL (81-99); MONO# 1.02 X1000 (0.11-0.59); MONO% 9.1 % (1.7-9.3); MPV 10.6 FL (7.4-10.4); NEUT# 7.08 X1000 (1.4-6.5); NEUT% 63.5 % (42.2-75.2); PLT 241 X1000 (130-400); RBC 5.56 XMIL (4.7-6.1); RDW 12.5 % (11.5-14.5); WBC 11.15 X1000 (4.8-10.8)
[2019-07-07 23:25] LABS: ALB/GLOB RATIO 1.4; ALBUMIN 4.2 g/dL (3.5-5.0); CALCIUM 9.2 mg/dL (8.8-10.2); CREATININE 1.8 mg/dL (0.7-1.2); POTASSIUM 4.7 mmol/L (3.5-5.1); TOTAL BILIRUBIN 0.25 mg/dL (0.20-1.00); TOTAL PROTEIN 7.2 g/dL (6.3-8.3)
[2019-07-07 23:30] LABS: INR 1.01; PROTIME 13.4 Seconds (11.0-16.0)
[2019-07-07 23:31] LABS: PTT 27.2 Seconds (22.3-41.8)
--- NOTE | 2019-07-08 00:10 | PROVIDER DOCUMENTATION ---
This chart was entered by Nick Self Scribe, acting as scribe for Ruma Ayoub MD. HPI-Respiratory General - General Chief Complaint: Shortness of Breath Stated Complaint: TROUBLE BREATHING Time Seen by Provider: 07/07/19 22:50 Source: patient Allergies/Adverse Reactions: Patient Allergies Allergy/AdvReac Type Severity Reaction Status Date / Time Penicillins Allergy Unknown Verified 04/28/19 09:25 Home Medications: Home Medication List Medication Instructions Recorded Confirmed Last Taken Type Aspirin 81 mg PO DAILY #30 chewtab 03/01/18 04/28/19 04/27/19 08:00 Rx Carvedilol [Coreg] 6.25 mg PO Q12HR #60 tab 06/28/18 04/28/19 04/27/19 20:00 Rx Furosemide [Lasix] 40 mg PO DAILY #90 tab 06/28/18 04/28/19 04/28/19 04:00 Rx Insulin Glargine,Hum.rec.anlog 6 units SQ QHS 04/28/19 04/28/19 04/27/19 22:00 History [Lantus Solostar] ROSUVAstatin [Crestor] 20 mg PO DAILY #90 tab 04/30/19 Unknown Rx Sacubitril/Valsartan [Entresto 49 1 ea PO BID #120 tab 04/30/19 Unknown Rx mg-51 mg Tablet] Spironolactone [Aldactone] 12.5 mg PO DAILY #90 tab 04/30/19 Unknown Rx - History of Present Illness-Resp Nature of Presenting Problem: Pt is a 69 yom who presents to the ED with a CC of shortness of breath. Pt reports having his symptoms for ten days. Pt also complains of orthopnea, dyspnea on exertion, and bendopnea. Upon examination the pt had a cardiac wheeze and a bilateral lower extremity edema, 2+. Pt reports a hx of diabetes. Pt denies any chest pain or palpitations. Quality of Pain: reports: dull Severity in ED: reports: mild Onset/Duration: reports: other (10 days) Timing: reports: still present Exposure: reports: unknown cause Cough Quality/Degree: reports: no cough Episode Frequency: occasional episodes Current Respiratory Medication Therapy: Initiated see nurses note Associated Symptoms: reports: shortness of breath, wheezing, other (Orthopnea, Dyspnea on exertion, and bendopnea) Similar Symptoms Previously?: Yes Recently seen or treated by another doctor?: No Review of Systems - Adult - REVIEW OF SYSTEMS - ADULT Constitutional: reports: see HPI Eyes: reports: no symptoms reported Ears, Nose, Mouth & Throat: reports: no symptoms reported Cardiovascular: reports: see HPI, orthopnea Respiratory: reports: see HPI, shortness of breath, wheezing Gastrointestinal: reports: no symptoms reported Genitourinary: reports: no symptoms reported Musculoskeletal: reports: no symptoms reported Integumentary: reports: no symptoms reported Neurological: reports: no symptoms reported Psychiatric: reports: no symptoms reported Endocrine: reports: no symptoms reported Hematologic/Lymphatic: reports: no symptoms reported Allergic/Immunologic: reports: no symptoms reported All Other Systems: Reviewed and Negative Past History - Adult - PAST MEDICAL HISTORY-ADULT Review of Records: reports: Nursing Assessment Review, Medications Reviewed, Social history reviewed & non-contributory. Major Childhood Illnesses: reports: denies history Cardiovascular: reports: CAD, HTN, hyperlipidemia, ID Respiratory: reports: denies history Gastrointestinal: reports: denies history Obstetrical/Gynecological: reports: denies history Genitourinary: reports: denies history Musculoskeletal: reports: denies history Neurological: reports: denies history Endocrine/Immune: reports: denies history Other Conditions: reports: denies history - PRIOR SURGERIES/PROCEDURES Surgical/Procedure History: reports: appendectomy, CABG, tonsillectomy, orthopedic (extremity) - IMMUNIZATION STATUS Childhood Immunizations: See Nurse Assessment Flu Vaccine: See Nurse Assessment - FAMILY HISTORY Family History: reviewed, not pertinent - SOCIAL HISTORY Smoking: quit less than 1 year, cigarettes Substance Use: alcohol Alcohol Use Frequency: occasionally Physical Exam-General - PHYSICAL EXAM-ADULT Initial Vital Signs Reviewed: Yes - CONSTITUTIONAL General Appearance: alert, mild distress - EYES Eyes: PERRL/EOMI, pink conjunctivae - HEAD, EARS, NOSE, MOUTH & THROAT HENMT: normocephalic/atraumatic, moist mucous membranes - NECK Neck: non-tender, full range of motion - CARDIOVASCULAR Cardiovascular: normal peripheral pulses, regular rate, rhythm, other (edema) - GASTROINTESTINAL (ABDOMEN) Abdominal Exam: non tender, soft - MUSCULOSKELETAL Extremity: normal range of motion, pedal edema (2+) - SKIN Integumentary: normal color, warm/dry - NEUROLOGIC Neurologic: grossly normal, no motor/sensory deficits - PSYCHIATRIC Psych/Mental Status: normal mood/affect, normal thought content, normal thought process, oriented x 3 Progress - PLAN OF CARE/RESULTS Progress/Plan/Lab Results: Vital Signs - 8 hr 07/07/19 22:41 Temperature 97.7 F Pulse Rate 57 L Respiratory Rate 20 Blood Pressure 108/61 O2 Sat by Pulse Oximetry 97 Laboratory Results - last 24 hr 07/07/19 07/07/19 07/07/19 22:47 22:52 22:52 WBC RBC Hgb Hct MCV MCH MCHC RDW Std Deviation Plt Count MPV Immature Gran % (Auto) Neut % (Auto) Lymph % (Auto) Gregg % (Auto) Eos % (Auto) Baso % (Auto) Immature Gran # (Auto) Neut # (Auto) Lymph # (Auto) Gregg # (Auto) Eos # (Auto) Baso # (Auto) PT INR PTT (Actin FS) Sodium 133 L Potassium 4.7 Chloride 94 L Carbon Dioxide 26 Anion Gap 13 BUN 38 H Creatinine 1.8 H Estimated GFR/1.73 m2 38 BUN/Creatinine Ratio 21 Glucose 382 H POC Glucose 334 H Calculated Osmolality 291 Calcium 9.2 Total Bilirubin 0.25 AST 13 ALT 20 Alkaline Phosphatase 101 Creatine Kinase 59 Troponin T 0.057 Roi-Y-Icvowopietj Pept Total Protein 7.2 Albumin 4.2 Globulin 3.0 Albumin/Globulin Ratio 1.4 07/07/19 07/07/19 07/07/19 22:52 22:52 22:52 WBC 11.15 H RBC 5.56 Hgb 15.9 Hct 45.8 MCV 82.4 MCH 28.6 MCHC 34.7 RDW Std Deviation 12.5 Plt Count 241 MPV 10.6 H Immature Gran % (Auto) 0.2 Neut % (Auto) 63.5 Lymph % (Auto) 23.6 Gregg % (Auto) 9.1 Eos % (Auto) 3.2 Baso % (Auto) 0.4 Immature Gran # (Auto) 0.02 Neut # (Auto) 7.08 H Lymph # (Auto) 2.63 Gregg # (Auto) 1.02 H Eos # (Auto) 0.36 Baso # (Auto) 0.04 PT 13.4 INR 1.01 PTT (Actin FS) 27.2 Sodium Potassium Chloride Carbon Dioxide Anion Gap BUN Creatinine Estimated GFR/1.73 m2 BUN/Creatinine Ratio Glucose POC Glucose Calculated Osmolality Calcium Total Bilirubin AST ALT Alkaline Phosphatase Creatine Kinase Troponin T Hsj-[id number]-Crhnxmqkmrh Pept 1656 H Total Protein Albumin Globulin Albumin/Globulin Ratio Orders Category Date Time Status Cardiac Monitoring DIRECTED Care 07/07/19 22:49 Active Oxygen Therapy- ED Nursing DIRECTED Care 07/07/19 22:49 Active Saline Loc NOW Care 07/07/19 22:49 Active CHEST-2 VIEWS [RAD] Stat Exams 07/07/19 22:49 Taken CBC WITH ELECTRONIC DIFF [HEME] Stat Lab 07/07/19 22:52 Completed CK PROFILE [SP CHEM] Stat Lab 07/07/19 22:52 Completed COMPREHENSIVE METABOLIC PANEL [CHEM] Stat Lab 07/07/19 22:52 Completed PRO B-NATRIURETIC PEPTIDE Stat Lab 07/07/19 22:52 Completed PROTIME WITH INR [COAG] Stat Lab 07/07/19 22:52 Completed PTT [COAG] Stat Lab 07/07/19 22:52 Completed TROPONIN T Stat Lab 07/07/19 22:52 Completed Aspirin Med 07/07/19 22:49 Discontinued 325 mg PO NOW ONE Furosemide [Lasix] Med 07/07/19 22:56 Discontinued 60 mg IV NOW ONE Insulin Human Regular [Humulin R] Med 07/07/19 22:56 Discontinued 8 unit IV NOW ONE CP/SOB/Palp >45 yrs of Age Stat Oth 07/07/19 22:49 Ordered EKG [EKG] Stat Ther 07/07/19 22:37 Ordered Result Diagrams: 07/07/19 22:52 07/07/19 22:52 - REASSESSMENT Reassessment #1 Time Reassessed: 00:08 Status: other (ORTHOPNEA AND ALSO DYSPNEA ON EXERTION AND DENIES COUGH; LABS AND IMAGES APPEARS BETTER. WILL DO OBSERVATION AND SPOKE TO DR. SHANNON. WILL GIVE 40MG IX VASIX.) Departure - Departure Date of Disposition Decision: 07/07/19 Time of Disposition Decision: 00:09 DIAGNOSIS: CHF exacerbation Disposition: ADMITTED INPATIENT 09 Certified Medical Emergency: Emergent Condition: Stable Additional Instructions: ED Follow Up Instructions: You have been treated by a care provider in the Emergency Department. These instructions are being provided to you so you can have an understanding of how to care for yourself upon discharge. Upon discharge from the Emergency Department, you are responsible for making arrangements for follow-up care by a physician of your choice. Take all prescribed medications as directed. Return to the Emergency Department immediately for any new or worsening symptoms. You may call the Physician Referral phone number at [phone] to obtain a list of Physicians who are taking new patients. Referrals and Follow-Ups: Scotty Aguilar MD [Primary Care Provider] - - Critical Care Note This patient required my direct & personal management of CC.: No Attestation - Physician/ ALVIN Attestation Patient care was provided by Advanced Practice Provider:: No The physician spent face to face time with patient:: Yes Advanced Practice Provider documentation review:: Supervising physician onsite and consulted in the evaluation and care of this patient. The physician did have a face to face encounter with the patient. This chart was documented by the indicated scribe, (Nick Self, Char[place]) and accurately reflects the services I performed and decisions made by me, Ruma Ayoub MD, as attested by the provider's signature.
--- NOTE | 2019-07-08 02:50 | EKG Report ---
Test Performed on : 07/07/2019 10:41:40 PM Test Reason : sob Blood Pressure : / mmHG Vent. Rate : 087 BPM Atrial Rate : 087 BPM P-R Int : 176 ms QRS Dur : 092 ms QT Int : 358 ms P-R-T Axes : 069 043 195 degrees QTc Int : 430 ms Normal sinus rhythm. ST & T wave abnormality, consider inferolateral ischemia Abnormal ECG When compared with ECG of 07-JUL-2019 22:41, (Unconfirmed) premature ventricular complexes. are no longer present Unconfirmed Result
--- NOTE | 2019-07-08 05:23 | Diag Imaging Result Doc PS360 ---
EXAM: CHEST-2 VIEWS HISTORY: sob TECHNIQUE: Two views COMPARISON: 08/29/2018 FINDINGS: The lungs are hyperexpanded. The heart is not enlarged. There are sternal wires. The vessels are small. There are no infiltrates. No pleural effusions. There is a calcified granuloma in the mid right lung. IMPRESSION: Emphysema Electronically signed by Brandon Degroot 07/08/2019 5:21 AM
[2019-07-08 06:42] LABS: BASO# 0.03 X1000 (0.0-0.2); BASO% 0.3 % (0.0-0.8); EOS# 0.31 X1000 (0.0-0.7); EOS% 3.1 % (0.0-10.0); HEMATOCRIT 46.4 % (42.0-52.0); IMM GRAN# 0.03 X1000 (0.0-0.04); IMM GRAN% 0.3 % (0.0-0.5); LYMPH# 2.36 X1000 (1.2-3.4); LYMPH% 23.7 % (20.5-51.1); MCH 28.5 PG (27-31); MCHC 34.5 g/dL (33-37); MCV 82.7 FL (81-99); MONO# 0.75 X1000 (0.11-0.59); MONO% 7.5 % (1.7-9.3); MPV 10.5 FL (7.4-10.4); NEUT# 6.47 X1000 (1.4-6.5); NEUT% 65.1 % (42.2-75.2); PLT 240 X1000 (130-400); RBC 5.61 XMIL (4.7-6.1); RDW 12.7 % (11.5-14.5); WBC 9.95 X1000 (4.8-10.8)
[2019-07-08] MEDS: HUMULIN R SUBQ SCH ×4 (06:48→21:17)
[2019-07-08 06:56] LABS: HEMOGLOBIN A1C 11.7 % (4.8-6.0)
--- NOTE | 2019-07-08 07:04 | EKG Report ---
Test Performed on : 07/08/2019 06:13:13 AM Test Reason : CHF Blood Pressure : / mmHG Vent. Rate : 073 BPM Atrial Rate : 073 BPM P-R Int : 196 ms QRS Dur : 090 ms QT Int : 396 ms P-R-T Axes : 071 062 241 degrees QTc Int : 436 ms Normal sinus rhythm. ST & T wave abnormality, consider inferolateral ischemia Abnormal ECG When compared with ECG of 07-JUL-2019 22:41, (Unconfirmed) No significant change was found Confirmed by Surinder GARCES, Robert Casey ([id number]) on 07/13/2019 9:24:21 AM
[2019-07-08 07:07] LABS: CALCIUM 8.9 mg/dL (8.8-10.2); CREATININE 1.8 mg/dL (0.7-1.2); MAGNESIUM 2.1 mg/dL (1.5-2.7); POTASSIUM 4.5 mmol/L (3.5-5.1)
[2019-07-08] MEDS ORDERED: COREG PO SCH (09:00)
[2019-07-08] MEDS ORDERED: COZAAR PO SCH (09:00)
[2019-07-08] MEDS ORDERED: CRESTOR PO SCH (09:00)
[2019-07-08] MEDS: ASPIRIN PO SCH (09:12)
[2019-07-08] MEDS: LANOXIN PO SCH (09:12)
[2019-07-08] MEDS: LASIX IV SCH ×2 (09:13→21:00)
[2019-07-08] MEDS ORDERED: DUONEB (A & A) INH PRN (10:51)
--- NOTE | 2019-07-08 11:21 | CARDIOLOGY CONSULTATION ---
DATE: 07/08/2019 HISTORY OF PRESENT ILLNESS: Mr. Weber is a 69-year-old, white male with a history of ischemic cardiomyopathy followed by Dr. Quigley. He has had a recent visit, about 1 month ago, to the office, as well as a recent hospitalization in April. The patient seems to have issues with adhering to his sodium restriction. He had some Crystal hamburgers within the last 48 to 72 hours. Began experiencing issues with shortness of breath with ambulation. He denies any orthopnea. Reports compliance with his medications. He has had no chest pain. PAST MEDICAL HISTORY: Significant for: 1. Coronary artery disease with coronary artery bypass grafting. This was performed in November of 2013. He had a vein graft to the LAD, vein graft to D1, and a vein graft to an OM1. His last nuclear stress was in 2015, showing an ejection fraction of 63%. This was a resting study. There was no stress data from that. His last echocardiogram showed an EF of 20% in April of this year. 2. Nonsustained ventricular tachycardia. 3. COPD. 4. Hypertension. 5. Hyperlipidemia. 6. Diabetes. 7. Tobacco use. 8. History of noncompliance with medications. SOCIAL HISTORY: He does smoke. FAMILY HISTORY: History of hypertension. REVIEW OF SYSTEMS: A 10 system review of systems is negative except for those things mentioned in the HPI. PHYSICAL EXAMINATION: The patient is afebrile. His heart rate most recently was 74. Blood pressures have been elevated anywhere from predominantly in the 140s to 150s. His Is and Os have limited data at this point. General: He is in no acute distress. HEENT: Oropharynx is moist. Poor dentition. His eye examination shows pink conjunctivae and white sclerae. Neck Examination: Shows no obvious thyromegaly or thyroid tenderness. Cardiovascularly, he sounds to be in a regular rate and rhythm. His JVP is not elevated. He has no lower extremity edema. There were no obvious murmurs. Chest Examination: Sounds relatively clear. He has no increased work of breathing. Abdomen: Soft, nontender, nondistended. He has no obvious organomegaly. Skin Examination: Warm and dry throughout without any rashes. Neurological: He is moving all extremities well with no lateralizing deficits. PERTINENT DATA: His chest x-ray shows no evidence of any infiltrates. Emphysematous changes are noted. His electrocardiogram shows sinus mechanism, nonspecific ST-T changes somewhat diffusely. This does not appear significantly different from his EKG earlier this month. His subsequent EKG today, again sinus rhythm, mild ST depression inferiorly and laterally, unchanged from previous. His lab data shows a white count of 9.9, his hematocrit is 46, his platelet count is 240,000. His sodium is 137, potassium is 4.5, his BUN was 39, with a creatinine of 1.8. That appears relatively stable for him. His proBNP was 1656 which actually appears to be on the low end of his measured values. His cardiac enzymes are negative times multiple sets. His most recent LDL was 133. ASSESSMENT: Mr. Weber is a 69-year-old gentleman who presented with heart failure exacerbation, likely secondary to dietary indiscretion. PLAN: At this point, I would not make any changes to his regimen. He seems to be diuresing based on his report. I will increase his Crestor to 40 mg. I had intended on switching him over to Entresto but per the patient, he could not afford this medications so we will continue him on the losartan and Coreg. His dose has been increased to 6.25 b.i.d. I think it would be reasonable to discharge the patient in the next 24 to 48 hours based on the above information. I spoke with the patient at length about sodium and fluid restriction. I believe the primary reason for his repetitive admissions has been sodium indiscretion. cc: Maninder Sanches MD
--- NOTE | 2019-07-08 11:34 | HISTORY AND PHYSICAL ---
PRIMARY CARE PROVIDER: Dr. Scotty Aguilar. PHYSICIAN PR[facility] SPORTS MEDICINE: Dr. Quigley. CHIEF COMPLAINT: Shortness of breath. HISTORY OF PRESENT ILLNESS: Mr. Weber is a 69-year-old male who reports that for a little over week now that he has been having worsening shortness of breath. He reports exertional dyspnea, orthopnea, some dizziness at times but this is mainly when he goes from a lying to a standing position such as getting out of bed. He also reports he has had some swelling in his lower extremities. He also reports that his fingerstick blood sugars have been running high as well, though he denies any fever, body aches, or chills. He denies any headache, chest pain, or cough. He denies any abdominal pain. He denies any nausea, vomiting, or diarrhea. He has been reporting some tingly type restless sensation in his feet though he reports this has been worse since his fingerstick blood sugars have been high. This could be related to diabetic neuropathy. The patient states he has not been diagnosed with this officially. The patient was admitted here fairly recently in April 2019 for acute systolic congestive heart failure exacerbation. His last echocardiogram was performed in April 2019, which did show an ejection fraction of 20%. He states that in early June, Dr. Quigley did make some changes to his medications. He did place him with new medicines of losartan, started him back on digoxin and added on Aldactone as well, though other than this, he denies any other medication changes. Upon evaluation in the ER, the patient is maintaining adequate oxygen saturations on room air though given his symptoms, we did perform a chest x-ray which did show findings of emphysema. He does have possibly some slight JVD and crackles in bilateral bases. He denies his abdomen being distended. He does have a slightly protuberant abdomen noted, but his abdomen does look distended though. This may be his baseline. He does have some edema noted in bilateral lower extremities. He does state since receiving Lasix in the ER that he feels much better. REVIEW OF SYSTEMS: A 14 point review of systems was conducted with the patient and all were negative except for pertinent positives mentioned in above HPI. PAST MEDICAL HISTORY: 1. Coronary artery disease status post 3-vessel coronary artery bypass graft. 2. Congestive heart failure with a last known ejection fraction of 20% in April 2019. 3. Diabetes mellitus type 2. 4. Hypertension. 5. Chronic kidney disease. 6. COPD. 7. Hyperlipidemia. PAST SURGICAL HISTORY: 1. Three-vessel coronary artery bypass graft in 2013. 2. Tonsillectomy. 3. Appendectomy. 4. Bilateral knee arthroscopy. FAMILY HISTORY: Positive for his father having a history of coronary artery disease. SOCIAL HISTORY: The patient is a former smoker, he states he quit smoking in 2013. He denies any alcohol other than an occasional beer or so, and denies any illicit drug use. ALLERGIES: He is allergic to penicillin. HOME MEDICATIONS: 1. Aspirin 81 mg p.o. daily. 2. Coreg 6.25 mg p.o. q.12 hours. 3. Digoxin 125 mcg p.o. q.a.m. 4. Lasix 40 mg p.o. q.a.m. 5. Lantus 6 units subcutaneous at bedtime. 6. Cozaar 50 mg p.o. b.i.d. 7. Crestor 20 mg p.o. daily. 8. Aldactone 12.5 mg p.o. q.a.m. LABORATORY AND DIAGNOSTIC [place]: [place] [address], hemoglobin 15.9, hematocrit 45.8, platelet count is 241,000. PT 13.4, INR 1.01, PTT is 27.2. Sodium 133, potassium 4.7, chloride 94, serum bicarb is 26, BUN 38, creatinine 1.8 with a GFR 38, glucose 382, calcium is 9.2. Liver function tests within normal limits. CK 59, troponin 0.057. ProBNP is 1656. Digoxin level is 0.5. EKG showed normal sinus rhythm without ST and T-wave abnormality at a rate of 87 with a QTc of 430. Chest x-ray showed emphysema. PHYSICAL EXAMINATION: VITAL SIGNS: Temperature 97.7 degrees, heart rate 76, respirations 18, blood pressure is 140/77, oxygen saturation is 95% on room air. GENERAL: Mr. Weber is a very pleasant 69-year-old male. He is resting in the ER chair. He is in no acute distress at this time. HEENT: Head is atraumatic, normocephalic. Pupils are equal, round, reactive to light, were 3 mm bilaterally and brisk. Oral mucosa is moist. Oropharynx is clear. NECK: Supple. Trachea midline. There was some possible slight JVD noted upon examination. CARDIOVASCULAR: Patient has S1, S2 present. No murmurs, gallops, rubs appreciated with regular rate and rhythm. PULMONARY: The patient has symmetrical chest expansion bilaterally. Lung sounds did have crackles noted in bilateral bases. ABDOMEN: Soft. Does appear to be slightly distended though the patient denies this. He does have a protuberant abdomen noted. He was nontender upon palpation. Bowel sounds are present in all 4 quadrants, were normoactive. EXTREMITIES: No cyanosis noted. He does have some approximately trace to 1+ pitting edema noted in bilateral lower extremities. Pulse, motor and sensory is intact in all extremities. Radial pulses were 2+ bilaterally. Pedal pulses were 1+ bilaterally. INTEGUMENTARY: The patient's skin is pink, warm, and dry. NEUROLOGICAL: Patient is alert and oriented to person, place, time, and situation. He is able to move all extremities. There were no focal neurological deficits noted. ASSESSMENT AND PLAN: 1. Congestive heart failure exacerbation. For this, we have placed the patient with Lasix 40 mg IV q.12 hours. He did receive a dose of this in the ER. Since receiving this, he does state that he feels better. We will continue with a series of cardiac enzymes, repeat EKG in the morning. We did not order an echocardiogram. The patient did just recently have one of these in April 2019 which did show an ejection fraction of 20%. We will do daily weights, strict intake and output. We have also continued his other regularly prescribed cardiac medications. 2. Coronary artery disease status post coronary artery bypass graft. We will continue treatment mentioned above in #1. We are awaiting Cardiology's evaluation and further recommendations for management. 3. Hypertension. We have continued his regularly prescribed antihypertensive. 4. Diabetes mellitus type 2. The patient does reportedly take Lantus only though we are going to place him on a sliding scale insulin as well. The patient has been reporting that his blood sugars have been running high here. They have been in the 200 to 300 range. We have ordered a hemoglobin A1c. 5. Chronic kidney disease. This does appear to be at the patient's baseline. His creatinine is 1.8. We will continue to monitor this closely. We will avoid nephrotoxic medications and renally dose medicines as necessary. 6. Chronic obstructive pulmonary disease. We will place orders for p.r.n. DuoNeb treatments if needed. 7. Deep vein thrombosis prophylaxis provided with heparin 5000 units subcutaneously q.12 hours. The patient has been placed on the medical floor with telemetry. He will have vital signs q.4 hours with strict intake and output. He will be on a diabetic, heart healthy diet. We will repeat labs in the morning. We are awaiting a series of cardiac enzymes. Further orders and recommendations pending hospital course, diagnostic studies, and physician evaluation. Dictated by TAQUERIA Light for Joao Childers MD cc: Joao Childers MD MTDD
[2019-07-08] MEDS: HEPARIN SUBQ SCH ×2 (12:17→22:07)
[2019-07-08] MEDS ORDERED: COREG PO ONE (15:13)
[2019-07-08] MEDS ORDERED: ENTRESTO 24 MG-26 MG TABLET PO SCH (21:00)
[2019-07-08] MEDS ORDERED: LANTUS INSULIN SUBQ SCH (21:00)
[2019-07-08] MEDS: COREG PO SCH (21:16)
[2019-07-08] MEDS: CRESTOR PO SCH (21:16)
[2019-07-08] MEDS: COZAAR PO SCH (21:16)
[2019-07-08] MEDS: ALDACTONE PO SCH (21:17)
[2019-07-09] MEDS: HUMULIN R SUBQ SCH ×4 (06:37→20:41)
[2019-07-09 08:22] LABS: CALCIUM 9.1 mg/dL (8.8-10.2); CREATININE 2.2 mg/dL (0.7-1.2); MAGNESIUM 2.3 mg/dL (1.5-2.7); PHOSPHORUS 4.3 mg/dL (2.7-4.5); POTASSIUM 4.3 mmol/L (3.5-5.1)
[2019-07-09] MEDS: HEPARIN SUBQ SCH ×2 (10:05→22:33)
[2019-07-09] MEDS: COREG PO SCH ×2 (10:06→20:40)
[2019-07-09] MEDS: LASIX IV SCH (10:06)
[2019-07-09] MEDS: COZAAR PO SCH (10:07)
[2019-07-09] MEDS: ASPIRIN PO SCH (10:09)
[2019-07-09] MEDS: LANOXIN PO SCH (10:09)
--- NOTE | 2019-07-09 14:33 | PROGRESS NOTE ---
DATE: 07/09/2019 SUBJECTIVE: The patient is awake, not in any obvious distress. OBJECTIVE: Vital Signs: Temperature 97.6 degrees, pulse 86, respiratory rate 19, blood pressure 103/55, oxygen saturation is 96%. HEENT: Atraumatic, normocephalic. Cardiovascular: S1, S2. Respiratory: Has evidence of good air entry bilaterally. Abdomen: Soft, nontender. No masses felt. Extremities: No evidence of edema. Central Nervous System: No obvious focal deficit noted. LABORATORY DATA: Sodium is 134, potassium 4.3, chloride is 93, bicarb is 25, BUN is 51, creatinine 2.2. ASSESSMENT AND PLAN: 1. Acute systolic heart failure. Maintain the patient on diuretics. Monitor intakes and outputs, as well as daily weights. Cardiology is following. 2. History of coronary artery disease, as well as status post coronary artery bypass graft. Continue aspirin, beta eva, statin. Cardiology is following. 3. Diabetes mellitus. Monitor blood sugar levels. Place the patient on sliding scale insulin. Optimize blood sugar control. 4. Hypertension. The patient's blood pressure is currently on the low side. We will have to make adjustments to his blood pressure medications accordingly. 5. Chronic kidney disease. Follow up on renal function. Avoid nephrotoxic agent. 6. Chronic obstructive pulmonary disease. Nebulized bronchodilator as needed. 7. Deep vein thrombosis prophylaxis. Heparin. cc: Maurice Newell MD
--- NOTE | 2019-07-09 19:14 | CARDIOLOGY PROGRESS NOTE ---
DATE: 07/09/2019 SUBJECTIVE: Mr. Weber has no complaints today. He feels better. OBJECTIVE: He is afebrile. Heart rate 86. His blood pressure is 103/55. Generally he is in no acute distress. Cardiovascularly he sounds to be in a regular rate and rhythm. He has no murmurs. He has no S3. He has no lower extremity edema. His chest exam is clear bilaterally. He has no increased work of breathing. LABORATORY DATA: Sodium 134, potassium 4.3, BUN 51, creatinine is 2.2. ProBNP is 744, which is down from 1656. ASSESSMENT: Mr. Weber is a 69-year-old gentleman with an ischemic cardiomyopathy. PLAN: At this point we will decrease his losartan to 50 daily. The patient reports he has had issues with fatigue when his losartan was increased. We will also try to increase his Lasix to 40 b.i.d. to deal with his volume overload and sodium indiscretion that he has been dealing with at home. I will contact the office and then have them follow up with a basic metabolic panel next week. cc: Maninder Sanches MD
[2019-07-09] MEDS: LASIX PO SCH (20:40)
[2019-07-09] MEDS: ALDACTONE PO SCH (20:40)
[2019-07-09] MEDS: CRESTOR PO SCH (20:41)
[2019-07-09] MEDS ORDERED: LANTUS INSULIN SUBQ SCH (21:00)
[2019-07-10] MEDS: HUMULIN R SUBQ SCH ×5 (06:21→21:09)
[2019-07-10] MEDS: COZAAR PO SCH (09:54)
[2019-07-10] MEDS: ASPIRIN PO SCH (09:54)
[2019-07-10] MEDS: COREG PO SCH ×2 (09:54→21:07)
[2019-07-10] MEDS: LASIX PO SCH (09:54)
[2019-07-10] MEDS: LANOXIN PO SCH (09:54)
[2019-07-10 11:51] LABS: BASO# 0.04 X1000 (0.0-0.2); BASO% 0.5 % (0.0-0.8); EOS# 0.23 X1000 (0.0-0.7); EOS% 3.1 % (0.0-10.0); IMM GRAN# 0.02 X1000 (0.0-0.04); IMM GRAN% 0.3 % (0.0-0.5); LYMPH# 1.77 X1000 (1.2-3.4); LYMPH% 23.8 % (20.5-51.1); MCH 28.7 PG (27-31); MCHC 34.1 g/dL (33-37); MCV 84.2 FL (81-99); MONO# 0.67 X1000 (0.11-0.59); MPV 10.6 FL (7.4-10.4); NEUT% 63.3 % (42.2-75.2); PLT 199 X1000 (130-400); RBC 4.87 XMIL (4.7-6.1); RDW 12.8 % (11.5-14.5); WBC 7.43 X1000 (4.8-10.8)
[2019-07-10] MEDS: HEPARIN SUBQ SCH ×2 (12:00→23:49)
[2019-07-10 12:10] LABS: CHLORIDE 94 mmol/L (98-107); SODIUM 133 mmol/L (136-145); TCO2 27 mmol/L (25-35)
[2019-07-10 12:11] LABS: AGAP 12; BUN 59 mg/dL (8-22); CALCIUM 8.6 mg/dL (8.8-10.2); COSMO 298; CREATININE 2.3 mg/dL (0.7-1.2); GLUCOSE 366 mg/dL (70-104)
[2019-07-10] MEDS ORDERED: NS 500 ML IV ONE (15:36)
--- NOTE | 2019-07-10 15:38 | EKG Report ---
Test Performed on : 07/10/2019 3:32:12 PM Test Reason : CHF, tingling in upper ext, tachycardia Blood Pressure : / mmHG Vent. Rate : 068 BPM Atrial Rate : 068 BPM P-R Int : 194 ms QRS Dur : 104 ms QT Int : 394 ms P-R-T Axes : 072 041 197 degrees QTc Int : 418 ms Normal sinus rhythm. ST & T wave abnormality, consider inferolateral ischemia Abnormal ECG When compared with ECG of 08-JUL-2019 06:13, (Unconfirmed) No significant change was found Confirmed by Surinder GARCES, Robert Casey ([id number]) on 07/13/2019 9:27:49 AM
--- NOTE | 2019-07-10 16:33 | CARDIOLOGY PROGRESS NOTE ---
DATE: 07/10/2019 SUBJECTIVE: The patient reported that this afternoon while he was walking around he got some tingling in his arms. He had no other real symptoms other than weakness. His vitals were checked and he had a heart rate of 126. I do not have any telemetry data from that time as he was not wearing his telemetry. By his EKG was checked, his heart rate was back down into the normal range and appeared to be sinus. OBJECTIVE: Vital Signs: He is afebrile. Most recent heart rate was in the 80s during my examination. His blood pressure is 125/51. General: He is in no acute distress. Cardiovascular: He sounds to be in a regular rate and rhythm. He has no murmurs. He has no S3. He has no lower extremity edema. Chest: Exam is clear bilaterally. No increased work of breathing. Abdomen: Soft, nontender. PERTINENT DATA: Sodium 133, potassium 5, BUN 59, creatinine is 2.3. Creatinine yesterday was 2.2. ASSESSMENT: Mr. Weber is a 69-year-old gentleman with ischemic cardiomyopathy, who came in slightly volume overloaded. PLAN: He may be a touch dry based on his creatinine. I will hold his p.m. Lasix give him a slight fluid bolus. We will recheck laboratories in the morning. If he is stable, he could feasibly go home in the morning. cc: Maninder Sanches MD
--- NOTE | 2019-07-10 18:36 | PROGRESS NOTE ---
DATE: 07/10/2019 INTERVAL HISTORY: Patient doing well this morning but had an episode while ambulating in the halls this afternoon where he became weak and slightly dizzy. Telemetry was not active at the time. Vitals afterwards appeared to be stable. Repeat troponin essentially stable. Discussed with Cardiology. They are not entirely certain what caused this but plan on backing off on his diuretics. I am giving him some gentle fluids overnight and re-evaluating in the morning. If he has no further issues, then may be able to go home tomorrow. No new complaints this morning. REVIEW OF SYSTEMS: Twelve-point review of systems negative except as per interval history. LABORATORY DATA: WBC 7.3, hemoglobin 14.0, hematocrit 41.0, platelets 199,000. Sodium 133, potassium 5, BUN 59, creatinine 2.3, glucose 202 to 359. Troponin 0.07. VITALS: T-max 98.3 degrees, pulse 91, respirations 24, blood pressure 117/76, O2 saturation 97% on room air. PHYSICAL EXAMINATION: General: No acute distress. Vitals: As above. HEENT: Normocephalic, atraumatic. Cardiovascular: Regular rate and rhythm. No murmurs noted. Pulmonary: Clear to auscultation bilaterally. Abdomen: Soft, nontender, nondistended. Bowel sounds positive. Extremities: Peripheral pulses intact. No clubbing, cyanosis, or edema. Neurologic: Cranial nerves grossly intact. No focal deficits. Psychiatric: Normal mood and affect. Awake, alert and oriented x3. ASSESSMENT AND PLAN: 1. Acute on chronic systolic congestive heart failure. Has responded well to diuretics but holding them currently. May have got him a little too dry. Gentle fluids as per Cardiology and monitor. 2. Coronary artery disease. Continue aspirin and beta eva and statin. 3. Diabetes. Control despite some changes to sliding scale yesterday remains poor. We will increase Lantus for tonight and monitor. 4. Hypertension. Blood pressure control has been excellent. Monitor. 5. CKD 3. Creatinine slightly elevated today above baseline. Holding Lasix and giving gentle fluids as above. Baseline appears to be approximately 1.8 to 2.0. 6. Chronic obstructive pulmonary disease. No sign of exacerbation currently. Monitor.
[2019-07-10] MEDS ORDERED: LANTUS INSULIN SUBQ SCH (21:00)
[2019-07-10] MEDS: CRESTOR PO SCH (21:07)
[2019-07-10] MEDS: ALDACTONE PO SCH (23:49)
[2019-07-11] MEDS: HUMULIN R SUBQ SCH ×3 (06:33→12:17)
[2019-07-11 08:05] LABS: CALCIUM 8.8 mg/dL (8.8-10.2); CREATININE 1.9 mg/dL (0.7-1.2); POTASSIUM 4.1 mmol/L (3.5-5.1)
[2019-07-11] MEDS: ASPIRIN PO SCH (10:50)
[2019-07-11] MEDS: COREG PO SCH (10:50)
[2019-07-11] MEDS: LASIX PO SCH (10:50)
[2019-07-11] MEDS: COZAAR PO SCH (10:51)
[2019-07-11] MEDS: HEPARIN SUBQ SCH (10:52)
[2019-07-11] MEDS: LANOXIN PO SCH (10:52)
[2019-07-11 13:29] VITALS: BP 156/63
--- NOTE | 2019-07-11 20:33 | DISCHARGE SUMMARY ---
ADMISSION DATE: 07/08/2019 DISCHARGE DATE: 07/11/2019 DISCHARGE DIAGNOSES: 1. [id number] systolic heart failure exacerbation. 2. History of coronary artery disease. 3. Diabetes. 4. Hypertension. 5. Chronic kidney disease stage 3. 6. Chronic obstructive pulmonary disease, not in exacerbation at this time. PROCEDURES PERFORMED: Chest x-ray dated 07/07/2019, impression: Emphysema. CONSULTS: Cardiology Department, Dr. Maninder Sanches. HOSPITAL COURSE: A 69-year-old male with a past medical history of coronary artery disease, status post 3-vessel coronary artery bypass graft; CHF with low ejection fraction, last time reported on 04/28/2019 was around 20%; diabetes; hypertension; COPD; hyperlipidemia. He presented to the emergency department and was admitted on 07/08/2019 due to worsening shortness of breath for over a week. He reported exertional dyspnea, orthopnea, and some dizziness at times, but mostly when he goes from a lying position to a standing position such as getting out of bed. Also he reported swelling in his lower extremities, and high blood sugar. No fever, no chills, no body aches. No headache. No chest pain or cough. In the ER the patient's oxygen saturation was stable on room air. Chest x-ray showed emphysema. Elevated D-dimer. He had positive JVD. Crackles bilaterally at the bases. He started getting Lasix and he was evaluated by Cardiology Department, Dr. Maninder Sanches. His Crestor was increased to 40. His dose of Coreg has been increased to 6.25 mg p.o. twice a day. I talked to the patient about fluid restriction and also about his diet. As per the patient, he is not following a diet and he is eating basically salty food. His son was at the bedside at the moment of my conversation. At times this patient felt like without energy, and as per the patient and the son somewhat lethargic, but given his current condition with advanced CHF and COPD, diabetes and hypertension, probably, he is getting tired at the main at the end of the day after the day. I do not think this is related to the medications. He has been feeling some tingling sensation at the level of the hands and upper extremities that probably could be related to the medications, though, probably especially furosemide. This patient has been getting better. It looks like he was over-diuresed during this hospitalization and we gave him back some IV fluids, and the kidney function went back to his baseline. He seems to be stable today and after discussing the case with Cardiology Department, Dr. Maninder Sanches, we have decided to discharge this patient and follow up with him in the future. Also to follow up with his primary care doctor in 1 week. PHYSICAL EXAMINATION: Vital signs: Temperature 97.4 degrees, pulse 71, respiratory rate 22, blood pressure 156/63, oxygen saturation 98% on room air. HEENT: Head normocephalic, no trauma. PERRLA. Neck supple. No JVD. No masses. Central trachea. Chest clear to auscultation bilaterally. Abdomen is soft, nontender, nondistended. No hepatosplenomegaly. Extremities: No edema, no clubbing, no cyanosis. Neurological: The patient seems to be awake, alert and oriented x3. No focal neurological deficits. LABORATORY DATA: Sodium 138, potassium 4.1, chloride 99, bicarbonate 26, BUN 51, creatinine 1.9, glucose 158, calcium 8.8. Troponin 0.064. DISCHARGE MEDICATIONS: Aspirin 81 mg p.o. daily; Coreg 6.25 mg p.o. q.12 hours; digoxin 125 mcg p.o. q.a.m.; Lasix 40 mg p.o. b.i.d.; Lantus 6 units subcutaneous at bedtime; losartan 50 mg p.o. daily; Crestor 20 mg p.o. daily; spironolactone 12.5 mg p.o. q.p.m. Time discharging this patient was 20 minutes. cc: Jeffery Bo MD
== END 2019-07-11 17:10 | disposition home or self-care (01) | DRG 291 ==
LOC: ED 22:23 → EDIPHOLD 07-08 03:12 → SUATTDRO 07-08 03:12 → 3N 07-08 07:11
PROVIDERS: ATTEND Internal Medicine

== ENCOUNTER 2019-07-18 23:00 | Inpatient (IN) ==
--- NOTE | 2019-07-18 23:29 | PROVIDER DOCUMENTATION ---
HPI-General Adult - General Chief Complaint: Shortness of Breath Stated Complaint: BREATHING PROBLEMS Time Seen by Provider: 07/18/19 23:11 Source: patient Allergies/Adverse Reactions: Patient Allergies Allergy/AdvReac Type Severity Reaction Status Date / Time Penicillins Allergy Unknown Verified 07/08/19 00:21 Home Medications: Home Medication List Medication Instructions Recorded Confirmed Last Taken Type Aspirin 81 mg PO DAILY #30 chewtab 03/01/18 07/08/19 04/27/19 08:00 Rx Carvedilol [Coreg] 6.25 mg PO Q12HR #60 tab 06/28/18 07/08/19 04/27/19 20:00 Rx Insulin Glargine,Hum.rec.anlog 6 units SQ QHS 04/28/19 07/08/19 04/27/19 22:00 History [Lantus Solostar] ROSUVAstatin [Crestor] 20 mg PO DAILY #90 tab 04/30/19 07/08/19 1 Day Ago Rx ~07/07/19 Digoxin 125 mcg PO QAM 07/08/19 07/08/19 Unknown History Spironolactone [Aldactone] 12.5 mg PO QPM 07/08/19 07/08/19 Unknown History Furosemide [Lasix] 40 mg PO BID #60 tab 07/10/19 Unknown Rx Losartan [Cozaar] 50 mg PO DAILY #0 07/10/19 07/08/19 Unknown Rx - History of Present Illness -Gen Adult Nature of Presenting Problems: 69yo male presents with CC of shortness of breath. The patient reports that he has been feeling short of breath over the last few days, but it has acutely worsened over the last few hours. The pt denies chest pain, fevers, or swelling. The patient does report hx of CHF with EF of 20%. The shortness of breath is worse with laying down. The patient was just discharged for similar symptoms last week. Location of Pain/Injury: reports: none Pain Radiation: reports: no radiation Quality of Pain: reports: none Severity: reports: mild Onset/Duration: reports: 3 days ago Timing: reports: getting worse Context/Activities at Onset: reports: none Modifying Factors: worse with: lying down Associated Symptoms: reports: cough, shortness of breath. denies: chest pain, fever/chills Similar Symptoms Previously?: Yes Recently seen or treated by another doctor?: Yes Review of Systems - Adult - REVIEW OF SYSTEMS - ADULT Constitutional: reports: no symptoms reported. denies: fever Eyes: reports: no symptoms reported. denies: eye pain Ears, Nose, Mouth & Throat: reports: no symptoms reported. denies: throat pain Cardiovascular: reports: orthopnea. denies: chest pain Respiratory: reports: cough, shortness of breath Gastrointestinal: reports: no symptoms reported. denies: abdominal pain Genitourinary: reports: no symptoms reported. denies: flank pain Musculoskeletal: reports: no symptoms reported. denies: back pain, joint swelling Integumentary: reports: no symptoms reported Neurological: reports: no symptoms reported. denies: headache/migraines Psychiatric: reports: no symptoms reported. denies: alcohol/drug dependence Endocrine: reports: no symptoms reported Hematologic/Lymphatic: reports: no symptoms reported, other (no bleeding) Allergic/Immunologic: reports: no symptoms reported, other (no swelling) Past History - Adult - PAST MEDICAL HISTORY-ADULT Review of Records: reports: Old Records Reviewed, Nursing Assessment Review, Medications Reviewed Major Childhood Illnesses: reports: denies history Cardiovascular: reports: CAD, HTN, hyperlipidemia, NC Respiratory: reports: denies history Gastrointestinal: reports: denies history Obstetrical/Gynecological: reports: denies history Genitourinary: reports: denies history Musculoskeletal: reports: denies history Neurological: reports: denies history Endocrine/Immune: reports: denies history Other Conditions: reports: denies history - PRIOR SURGERIES/PROCEDURES Surgical/Procedure History: reports: appendectomy, CABG, tonsillectomy, orthopedic (extremity) - IMMUNIZATION STATUS Childhood Immunizations: See Nurse Assessment Flu Vaccine: See Nurse Assessment - FAMILY HISTORY Family History: other (heart disease) - SOCIAL HISTORY Smoking: quit greater than 1 year Substance Use: denies Alcohol Use Frequency: never Physical Exam-General - PHYSICAL EXAM-ADULT Initial Vital Signs Reviewed: Yes - CONSTITUTIONAL General Appearance: appears well, alert, no apparent distress - EYES Eyes: negative: conjuctival exudate, scleral icterus - HEAD, EARS, NOSE, MOUTH & THROAT HENMT: normocephalic/atraumatic, moist mucous membranes. negative: pharynx normal, hearing deficit, pharyngeal erythema - NECK Neck: non-tender, supple - RESPIRATORY Respiratory: lungs clear, normal breath sounds, no respiratory distress. negative: crackles, rales, rhonchi - CARDIOVASCULAR Cardiovascular: regular rate, rhythm, no edema, systolic murmur. negative: JVD, gallop/S3, extra beats - GASTROINTESTINAL (ABDOMEN) Abdominal Exam: non tender, soft, distended. negative: guarding, rigid - MUSCULOSKELETAL Extremity: non-tender. negative: swelling, tenderness - SKIN Integumentary: normal color, warm/dry - NEUROLOGIC Neurologic: grossly normal - PSYCHIATRIC Psych/Mental Status: normal mood/affect, normal thought content, normal thought process Progress - PLAN OF CARE/RESULTS Progress/Plan/Lab Results: Vital Signs - 8 hr 07/18/19 23:06 Temperature 98.5 F Pulse Rate 82 Respiratory Rate 20 Blood Pressure 103/69 O2 Sat by Pulse Oximetry 96 Orders Category Date Time Status Cardiac Monitoring DIRECTED Care 07/18/19 23:11 Active Oxygen Therapy- ED Nursing DIRECTED Care 07/18/19 23:11 Active Saline Loc NOW Care 07/18/19 23:11 Active CHEST-2 VIEWS [RAD] Stat Exams 07/18/19 23:11 Ordered CBC WITH ELECTRONIC DIFF [HEME] Stat Lab 07/18/19 23:11 Uncollected CK PROFILE [SP CHEM] Stat Lab 07/18/19 23:11 Uncollected COMPREHENSIVE METABOLIC PANEL [CHEM] Stat Lab 07/18/19 23:11 Uncollected PRO B-NATRIURETIC PEPTIDE Stat Lab 07/18/19 23:11 Uncollected PROTIME WITH INR [COAG] Stat Lab 07/18/19 23:11 Uncollected PTT [COAG] Stat Lab 07/18/19 23:11 Uncollected TROPONIN T HIGH SENSITIVITY Stat Lab 07/18/19 23:11 Uncollected CP/SOB/Palp >45 yrs of Age Stat Oth 07/18/19 23:11 Ordered EKG [EKG] Stat Ther 07/18/19 23:11 Ordered Result Diagrams: 07/18/19 23:50 07/18/19 23:50 - REASSESSMENT Reassessment #1 Status: other (Patient with elevated BNP as well as troponin in the upper limits of normal. Patient with desaturation 92 with ambulation. Given severe CHF (EF 20%), increased BNP, dypsnea, and troponin in the upper limits of normal, will plan for admission for trending troponin, diuresis, and repeat ECHO. Discussed with the hospitalist team who has accepted the patient.) - EKG 1 Time of EKG reading by physician:: 00:11 EKG Read and Signed by:: Jeff Brannon (Entered/Co-read [facility]) EKG Interpretation (*Must complete 3 of following elements*): Abnormal Rate: 72 Rhythm: sinus [place]: normal QRS: normal [place] Interval: normal ST Wave: non-specific ST changes Prior EKG Comparison: unchanged from prior Comments: previous non-specific changes noted, no injury current noted. Departure - Departure Date of Disposition Decision: 07/19/19 Time of Disposition Decision: 01:15 DIAGNOSIS: Acute dyspnea CHF exacerbation Qualifiers: Heart failure type: combined systolic and diastolic Qualified Code(s): I50.43 - Acute on chronic combined systolic (congestive) and diastolic (congestive) heart failure Disposition: ADMITTED INPATIENT 09 Certified Medical Emergency: Emergent Condition: Fair Referrals and Follow-Ups: Scotty Aguilar MD [Primary Care Provider] - - Critical Care Note This patient required my direct & personal management of CC.: No Attestation - Physician/ ALVIN Attestation Patient care was provided by Advanced Practice Provider:: No The physician spent face to face time with patient:: Yes Advanced Practice Provider documentation review:: Supervising physician onsite and consulted in the evaluation and care of this patient. The physician did have a face to face encounter with the patient.
--- NOTE | 2019-07-19 00:16 | EKG Report ---
Test Performed on : 07/19/2019 00:11:31 AM Test Reason : Shortness of breath Blood Pressure : / mmHG Vent. Rate : 072 BPM Atrial Rate : 072 BPM P-R Int : 000 ms QRS Dur : 104 ms QT Int : 364 ms P-R-T Axes : 000 041 200 degrees QTc Int : 398 ms Accelerated Junctional rhythm. with occasional premature ventricular complexes. ST & T wave abnormality, consider inferolateral ischemia Abnormal ECG When compared with ECG of 10-JUL-2019 15:32, Junctional rhythm. has replaced Sinus rhythm. T wave inversion now evident in Anterior leads Unconfirmed Result
[2019-07-19 00:20] LABS: BASO# 0.07 X1000 (0.0-0.2); BASO% 0.7 % (0.0-0.8); EOS# 0.36 X1000 (0.0-0.7); EOS% 3.4 % (0.0-10.0); HEMATOCRIT 41.7 % (42.0-52.0); HEMOGLOBIN 14.4 g/dL (14.0-18.0); IMM GRAN# 0.03 X1000 (0.0-0.04); IMM GRAN% 0.3 % (0.0-0.5); LYMPH# 2.06 X1000 (1.2-3.4); LYMPH% 19.7 % (20.5-51.1); MCH 28.8 PG (27-31); MCHC 34.5 g/dL (33-37); MCV 83.4 FL (81-99); MONO# 1.83 X1000 (0.11-0.59); MONO% 17.5 % (1.7-9.3); NEUT# 6.11 X1000 (1.4-6.5); NEUT% 58.4 % (42.2-75.2); PLT 229 X1000 (130-400); RDW 12.7 % (11.5-14.5); WBC 10.46 X1000 (4.8-10.8)
[2019-07-19 00:50] LABS: ALB/GLOB RATIO 1.4; ALBUMIN 4.1 g/dL (3.5-5.0); CALCIUM 8.8 mg/dL (8.8-10.2); CREATININE 2.1 mg/dL (0.7-1.2); TOTAL BILIRUBIN 0.34 mg/dL (0.20-1.00); TOTAL PROTEIN 7.1 g/dL (6.3-8.3)
[2019-07-19 01:00] LABS: INR 1.05; PROTIME 13.8 Seconds (11.0-16.0)
[2019-07-19 01:01] LABS: PTT 32.6 Seconds (22.3-41.8)
[2019-07-19] MEDS ORDERED: LASIX IV ONE (01:09)
[2019-07-19] MEDS ORDERED: LASIX IV SCH (04:44)
--- NOTE | 2019-07-19 05:38 | Diag Imaging Result Doc PS360 ---
EXAM: CHEST-2 VIEWS HISTORY: Shortness of breath TECHNIQUE: Two views COMPARISON: 07/07/2019 FINDINGS: The lungs are hyperexpanded. Sternal wires are present. No cardiomegaly. No pulmonary edema. There is a granuloma in the mid right lung. No pleural effusions. IMPRESSION: Emphysema Electronically signed by Brandon Degroot 07/19/2019 5:36 AM
[2019-07-19] MEDS ORDERED: SOLU-MEDROL IV SCH (06:45)
[2019-07-19] MEDS: HUMULIN R SUBQ SCH ×4 (07:02→22:07)
[2019-07-19] MEDS: PRILOSEC PO SCH (07:03)
[2019-07-19] MEDS: DUONEB (A & A) INH SCH ×5 (07:54→23:21)
--- NOTE | 2019-07-19 08:11 | HISTORY AND PHYSICAL ---
HISTORY OF PRESENT ILLNESS: Mr. Daniel Weber is a 69-year-old male who has a history of congestive heart failure, coronary artery disease status post CABG, diabetes mellitus, hyperlipidemia, chronic kidney disease, and presents to the hospital because of shortness of breath, which he noticed prior to presenting to the ER. The patient becomes short of breath with slight activity. He is also orthopneic. Denies any leg swelling. No chest pain. No palpitations. No loss of consciousness. When he presented to the ER, he was found to have a chest x-ray, which showed that the lungs are hyperexpanded. No evidence of pulmonary edema. No evidence of pleural effusion. His proBNP level was 1331. The patient has been admitted now for further management. PAST MEDICAL HISTORY: Coronary artery disease status post CABG, congestive heart failure with last known ejection fraction of about 20%, diabetes mellitus type 2, hypertension, chronic kidney disease, COPD, hyperlipidemia. PAST SURGICAL HISTORY: He has had a 3-vessel CABG in 2013, tonsillectomy, appendectomy, bilateral knee arthroscopy. FAMILY HISTORY: Positive for heart disease. SOCIAL HISTORY: No current history of cigarette smoking, alcohol, or drug use. ALLERGIES: He is allergic to penicillin. MEDICATIONS: Include the following: Aspirin 81 mg p.o. daily, Coreg 6.25 mg p.o. twice a day, Lantus 60 units p.o. subcutaneously at bedtime, Crestor 20 mg p.o. daily, digoxin 125 mcg p.o. daily, spironolactone 12.5 mg p.o. once a day, Lasix 40 mg p.o. twice a day, Cozaar 50 mg p.o. daily. REVIEW OF SYSTEMS: Constitutional: No fever. CATERING AND EVENTS MANAGER: No headaches. Eyes: No blurred vision. ENT: Has sinus problem. GI: No nausea, vomiting, or diarrhea. No abdominal pains. : No dysuria. Dermatology: No skin lesions. Hematology: No bleeding problems. Musculoskeletal: Has joint pains. Psychiatric: No anxiety or depression. Hematology: No bleeding problems. Endocrine/Allergies: Has diabetes. No thyroid disease. PHYSICAL EXAMINATION. Vitals: T-98.5, P-82, RR-20, BP 103/69mmhg HEENT-at, nc, anicteric NECK- no jvd, no lymphadenopathy or thyromegaly CVS: S1S2 RESP: clear to auscultation ABD. Soft, non tender, no masses felt EXT: no edema CATERING AND EVENTS MANAGER: no focal deficits IMAGING AND LABORATORY DATA: WBCs 10.46, hematocrit is 41.7, with a platelet count of 229,000. Sodium is 131, potassium 5.0, chloride is 99, bicarb 26, BUN is 53, creatinine is 2.1, glucose 356. Troponin 88/86. ProBNP 1331. Chest x-ray shows hyperexpanded lungs. No pulmonary edema or pleural effusions. EKG shows occasional PVCs with ST-T abnormalities. ASSESSMENT AND PLAN: 1. Acute dyspnea. The patient does not show features of decompensated congestive heart failure. X-ray does not show any evidence of pulmonary edema, and he does not have any leg swelling. Suspect the patient may be having chronic obstructive pulmonary disease exacerbation. As such, we have placed the patient on nebulized bronchodilators and also low- dose steroids. Will check a D-dimer level. Maintain the patient on oxygen. Consult with Cardiology as well as Pulmonology. 2. Elevated troponin/history of coronary artery disease. Maintain the patient on telemetry. Get serial cardiac enzymes. Continue aspirin, beta blockers, as well as statin. Cardiology consulted. 3. Diabetes mellitus. Monitor blood sugar levels. Maintain the patient on sliding scale insulin. Check hemoglobin A1c level. 4. Hyperlipidemia. Continue atorvastatin. 5. Chronic kidney disease. Follow up on renal function. Avoid nephrotoxic agent. Consult with Nephrology. 6. Deep vein thrombosis prophylaxis. Sequential compression devices. 7. Gastrointestinal prophylaxis. Proton pump inhibitor. cc: Maurice Newell MD [facility]
--- NOTE | 2019-07-19 08:50 | EKG Report ---
Test Performed on : 07/19/2019 08:40:02 AM Test Reason : cad Blood Pressure : / mmHG Vent. Rate : 069 BPM Atrial Rate : 069 BPM P-R Int : 198 ms QRS Dur : 104 ms QT Int : 374 ms P-R-T Axes : 063 050 196 degrees QTc Int : 400 ms Normal sinus rhythm. ST & T wave abnormality, consider inferolateral ischemia Abnormal ECG When compared with ECG of 19-JUL-2019 00:11, (Unconfirmed) Sinus rhythm. has replaced Junctional rhythm. Confirmed by Surinder GARCES, Robert Casey ([id number]) on 07/19/2019 6:56:21 PM
[2019-07-19] MEDS: LASIX IV SCH (09:48)
[2019-07-19] MEDS: COREG PO SCH ×2 (09:49→22:06)
[2019-07-19] MEDS: COZAAR PO SCH (09:49)
[2019-07-19] MEDS: ASPIRIN PO SCH (09:49)
[2019-07-19] MEDS: CRESTOR PO SCH (09:49)
[2019-07-19] MEDS: LANOXIN PO SCH (09:49)
--- NOTE | 2019-07-19 13:27 | CARDIOLOGY CONSULTATION ---
DATE: 07/19/2019 HISTORY OF PRESENT ILLNESS: Mr. Weber is a 69-year-old, gentleman with a history of congestive heart failure, coronary artery disease, coronary artery bypass grafting, diabetes. Comes to the emergency room with increasing shortness of breath. He has also noticed some congestion in his sinuses. Denies any chest pain. There are no palpitations. There is no dizziness or syncope. He was admitted here recently and subsequently discharged. His said he became orthopneic before he came to the emergency room. There is no history of palpitations. There is no dizziness or syncope. At the time of my examination, he says his shortness of breath is better. REVIEW OF SYSTEM: A 14-point review of systems was done. GI System: There is no history of nausea, vomiting, or diarrhea. There is no history of hematemesis or melena. Central Nervous System: No focal weakness to suggest a CVA or TIA. PAST MEDICAL HISTORY: 1. Coronary artery disease, status post coronary artery bypass grafting in 2003 with saphenous vein graft to LAD, saphenous vein graft to D1, saphenous vein graft to OM. 2. History of nonsustained ventricular tachycardia. 3. COPD. 4. Systolic heart failure. 5. Hypertension. 6. Hyperlipidemia. 7. Diabetes. 8. Tobacco abuse. SOCIAL HISTORY: He does smoke. There is no history of alcohol abuse. HOME MEDICATIONS: Include aspirin 81 mg a day, insulin as directed, Crestor 20, Coreg 6.25 b.i.d., Lanoxin 0.125 mg a day, spironolactone 25, Lasix 40 mg b.i.d., losartan 50 mg a day. ALLERGIES: He is allergic to penicillin. PHYSICAL EXAMINATION: On examination, blood pressure was 141/53. Jugular venous pressure was normal. First and second heart sounds were heard. There were a few scattered wheezes. Abdomen was soft, nontender. There was no guarding or rigidity. Bowel sounds were heard. Central Nervous System: Alert and was moving all 4 extremities. Examination of extremities revealed no pedal edema. HEENT: Atraumatic, normocephalic. Pupils were equal and reacting to light. LABORATORY DATA: WBC 10.46, hematocrit 41, platelet count 229,000. Sodium 131, potassium 5, creatinine 2.1, BUN 53. ASSESSMENT AND PLAN: 1. Mr. Daniel Weber is a 69-year-old, gentleman with a history of coronary artery disease, coronary artery bypass grafting, left ventricular dysfunction, chronic renal insufficiency. He comes in with complaints of increasing shortness of breath as described above. He is symptomatically improved. His chest x-ray revealed emphysematous changes. No obvious congestive heart failure. From a cardiac standpoint, he has had left ventricular dysfunction in the recent past. We will get a limited echocardiogram done. 2. He has had coronary artery bypass grafting and has diabetes. We will make sure there is no ischemia. We will set him up to undergo a Lexiscan Cardiolite stress test. 3. He takes Lasix 40 mg at home. He was started on intravenous Lasix 40 mg intravenous daily. Would recommend continuing the same. 4. Left ventricular dysfunction. He is on losartan and beta blockers. I have not made any changes. He is also on Aldactone. Thank you for the consult. We will follow hospital course. cc: Adam Jackson MD
--- NOTE | 2019-07-19 16:13 | PROGRESS NOTE ---
DATE: 07/27/2019 SUBJECTIVE: Today Mr. Weber refers to be breathing a lot better. He said he has a lot of congestion in his nose but otherwise, his breathing has significantly improved. He was evaluated earlier on by Dr. Jackson. OBJECTIVE: Vital signs: Blood pressure is 141/53, pulse of 71, respirations 20, temperature is 97.6 degrees. The patient is saturating 93% on room air. General: Mr. Weber is a 69-year- old gentleman. He is in bed,. No distress mucosa is pink and moist. Anicteric. Acyanotic. Neck: Supple. Chest: Good air entry bilateral. There was no rhonchi and no crepitations. Cardiovascular: Regular rate and rhythm. There are no murmurs no. Rubs no gallops. GI: Abdomen was soft, nontender. Bowel sounds present. Extremities: No pedal edema. Distal pulses are remarkably low. Musculoskeletal: There is an old sternotomy scar on the anterior chest wall. LABORATORY DATA: None for this morning. Glucose is 305. Digoxin level is actually low. I's and O's: Urine output was 1,000. Patient is currently negative balance of 520. MEDICATIONS: Have all been reviewed. IMAGING: A chest x-ray on admission did show emphysema. ASSESSMENT: 1. Acute hypoxemic respiratory failure secondary to pulmonary edema from congestive heart failure. 2. Acute on chronic systolic heart failure, ejection fraction of 20%. 3. Emphysema on chest x-ray. Patient with a history of tobacco abuse in the past. Most likely undiagnosed chronic obstructive pulmonary disease. 4. History of coronary artery disease, status post coronary artery bypass graft. 5. Dyslipidemia. 6. Diabetes mellitus. On insulin regimen. 7. Chronic kidney disease stage 3B. PLAN: So In general, I think Mr. Weber refers to be doing well. Shortness of breath has significantly improved. Glucose is remarkably high. I think part of it is because of the steroids. He does not seem to have a lot of wheezing at this point, so we will discontinue that. We will discontinue the steroids. Continue on the bronchodilation therapy, the diuretics, and his other home medications. Patient has been seen by Cardiology. I have spoken with Dr. Jackson myself. He plans to do a stress test on him tomorrow. cc: Andrew Silva MD
[2019-07-19] MEDS: FLONASE NAS SCH (16:28)
[2019-07-19] MEDS ORDERED: LANTUS INSULIN SUBQ ONE ×2 (18:42→18:43)
[2019-07-19] MEDS ORDERED: ALDACTONE PO SCH (21:00)
[2019-07-20] MEDS ORDERED: HUMULIN R SUBQ ONE (00:05)
--- NOTE | 2019-07-20 02:58 | PULMONOLOGY CONSULTATION ---
DATE: 07/19/2019 REQUESTING CLINICIAN: Dr. Newell. REASON FOR CONSULTATION: COPD. HISTORY OF PRESENT ILLNESS: Mr. Weber is a 69-year-old male with an [id number] history for tobacco (nonsmoker for 5 years), poorly controlled diabetes mellitus, coronary artery disease with ischemic cardiomyopathy and ejection fraction of 20%, who was admitted to the hospital from 07/08/2019 to 07/11/2019 with acute on chronic systolic heart failure. He was diuresed and his medications were adjusted, but he returned to the emergency room with increased shortness of breath and increased weakness. He also had an upper respiratory infection several days prior to admission which was resolving. PAST MEDICAL HISTORY: 1. Extensive tobacco history. He carries a diagnosis of COPD, but does not recall pulmonary function studies being performed. 2. Coronary artery disease. 3. Ischemic cardiomyopathy. 4. Chronic kidney disease. 5. Poorly controlled diabetes mellitus. Hemoglobin A1c greater than 10 for the last 2 checks. 6. Status post tonsillectomy. 7. Status post bilateral knee arthroscopy. FAMILY HISTORY: Notable for heart disease. SOCIAL HISTORY: The patient smoked between the ages of 20 and 64. He stopped smoking when he underwent his coronary artery bypass grafting. PHYSICAL EXAMINATION: General: Reveals a thin white male resting comfortably in his bed and in no distress. Vital Signs: BP 148/55, heart rate 77, respiratory rate 16, oxygen saturation 93%. HEENT: Pupils are equal and reactive. Oropharynx appears clear. Neck: Supple. Chest: Does reveal prolonged expiratory phase without wheezing or rhonchi. Cardiac: S1, S2. Regular rhythm. Abdomen: Soft. Extremities: Reveal trace edema. LABORATORIES: Chest x-ray reveals generous cardiac silhouette with mild vascular prominence, but no pulmonary edema or pleural effusions. IMPRESSION: A 69-year-old with: 1. Dyspnea. 2. Chronic obstructive pulmonary disease. 3. Ischemic cardiomyopathy. 4. Uncontrolled diabetes mellitus. DISCUSSION: A 69-year-old with problems outlined above. The patient has a sensation of dyspnea. He does have prolonged expiratory phase, but no overt wheezing. I suspect he does have COPD, but it may be difficult to separate his symptoms from his heart disease. PLAN: 1. Obtain pulmonary function studies to evaluate the degree of obstruction. 2. Treatment for heart failure per Cardiology. 3. Strongly encourage patient to do better controlling his diabetes. cc: Alvarado Vieira MD
[2019-07-20] MEDS: DUONEB (A & A) INH SCH ×4 (05:02→15:49)
[2019-07-20] MEDS: HUMULIN R SUBQ SCH ×3 (06:21→15:14)
[2019-07-20] MEDS: PRILOSEC PO SCH (06:21)
[2019-07-20] MEDS ORDERED: ALBUTEROL NEB ONE (08:01)
[2019-07-20 08:38] VITALS: BP 151/53
[2019-07-20 08:39] LABS: HEMOGLOBIN A1C 12.2 % (4.8-6.0)
[2019-07-20 08:46] LABS: CHOLESTEROL 167 mg/dL (0-200); HDL 33 mg/dL (35-55); LDL 108 mg/dL; TRIGLYCERIDES 130 mg/dL (39-160); VLDL 26 mg/dL
[2019-07-20] MEDS: HUMALOG SUBQ SCH ×3 (08:47→17:48)
[2019-07-20 08:57] LABS: ALBUMIN 3.7 g/dL (3.5-5.0); CALCIUM 9.5 mg/dL (8.8-10.2); CREATININE 2.2 mg/dL (0.7-1.2); PHOSPHORUS 5.3 mg/dL (2.7-4.5); POTASSIUM 4.4 mmol/L (3.5-5.1)
[2019-07-20] MEDS ORDERED: LOVENOX SUBQ SCH (09:00)
[2019-07-20] MEDS ORDERED: LANTUS INSULIN SUBQ SCH ×3 (09:00)
--- NOTE | 2019-07-20 09:44 | NEPHROLOGY CONSULTATION ---
DATE: 07/20/2019 REASON FOR ADMISSION: Shortness of breath. REASON FOR CONSULTATION: Acute on chronic kidney disease. CONSULTING PHYSICIAN: Dr. Silva. HISTORY OF PRESENT ILLNESS: This is a 69-year-old gentleman with a past medical history of COPD, diabetes, hypertension, CKD with a baseline creatinine of 1.5 to 1.8 who does not follow with a benefits consultant. He came into the emergency room secondary to shortness of breath. Imaging had no evidence of pulmonary edema, pleural effusion. He was admitted for COPD exacerbation. His creatinine on day of admission was 2.1. I have no new labs today. He has been voiding. He is making adequate urine. He made 1.8 L of urine yesterday. Today he states his shortness of breath is better. He has been ambulatory without assistance. He is to go for a stress test today. PAST MEDICAL HISTORY: As noted above. SURGICAL HISTORY: He had a CABG 3 vessel in 2013, appendectomy, tonsillectomy bilateral knee arthroscopy. ALLERGIES: Penicillin. HOME MEDICATIONS: Aspirin, Coreg, Lantus, Crestor, digoxin, spironolactone, Lasix, Cozaar. FAMILY HISTORY: Heart disease. SOCIAL HISTORY: Stopped smoking 5 years ago. No ETOH or illicit drug use. 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 REVIEW OF SYSTEMS: Shortness of breath, improved. PHYSICAL EXAMINATION: Vital Signs: Temperature 97.3 degrees, pulse 81, respiratory rate 18, blood pressure 124/47, intake 720 mL. Output 1.8 L. General: This is an elderly gentleman sitting up on the side of the bed. He is awake and alert. He does not appear in acute distress. HEENT: Normocephalic, atraumatic. PERRL. Conjunctivae are pink. Neck: Supple. There is no JVD in the upright position. Cardiovascular: Regular rate and rhythm. Pulmonary: He has an increased expiratory phase. No wheezes or rales. Abdomen: Soft, with positive bowel sounds. : Voiding. Extremities: No cyanosis, or edema. He has positive clubbing to the finger tips. Integumentary: Skin is warm and dry otherwise. Neurologic: Grossly nonfocal. LAB DATA: Again today's labs are pending. His last creatinine was noted at 2.1. He had WBC of 10.4, and potassium 5.0 this was yesterday. Chest x-ray with hyperexpanded lungs, no pulmonary edema or pleural effusion. ASSESSMENT AND PLAN: 1. Acute on chronic kidney disease, close to historical baseline. The patient states that he had been on diuretics recently to assist with his fluid management. We have ordered urine studies and imaging to further stratify his renal function. He does not have any absolute indications today for intervention. 2. Chronic obstructive pulmonary disease, dyspnea, ischemic cardiomyopathy followed by primary, cardiology, pulmonology. I think he is to go for a stress test today. 3. Hypertension, controlled. 4. Fluid volume. He is in negative territory overnight. 5. Medication review. He is on Lasix 40 mg once daily. He is still on his Cozaar and on his Aldactone. Once we have labs back we will make a decision as far as adjusting these medications. Dictated by TAQUERIA Grant for Charles Helm MD Face to face encounter, data reviewed, discussed with Arianna Ghotra on 07/20/18. I agree with the above assessment and plan of care. cc: Charles Helm MD [facility]
[2019-07-20] MEDS ORDERED: LEXISCAN ONE (12:44)
[2019-07-20] MEDS: COREG PO SCH (14:56)
[2019-07-20] MEDS: LANOXIN PO SCH (14:56)
[2019-07-20] MEDS: CRESTOR PO SCH (14:56)
[2019-07-20] MEDS: ASPIRIN PO SCH (14:56)
[2019-07-20] MEDS: COZAAR PO SCH (14:57)
[2019-07-20] MEDS: LASIX IV SCH (14:57)
--- NOTE | 2019-07-20 15:02 | Diag Imaging Result Document ---
PROCEDURE NAME: MYOCARDIAL PERF SCAN, STR/REST - 07/20/2019 SUMMARY: The patient was administered 13.2 mCi of technetium 99-m sestamibi after which resting cardiac images were obtained. The patient was subsequently administered Lexiscan 0.4 mg intravenously, after which the heart rate went from 62 beats per minute to 84 beats per minute and the blood pressure went from 177/71 to 144/60. With Lexiscan, the patient denied chest discomfort. Following the administration of Lexiscan, the patient was administered 37.9 mCi of sestamibi, after which gated stress cardiac images were obtained. Baseline ECG demonstrated normal sinus rhythm and incomplete left bundle branch block. With Lexiscan, baseline ST and T-wave abnormality did not change significantly. SPECT images were reconstructed in the short, horizontal, vertical long axis. Review of these images demonstrated a medium-sized area of moderately diminished activity in the basal and mid inferior wall on stress images which appears similar on resting images. No significant reversibility is evident. Gated images demonstrate a calculated left ventricular ejection fraction of 45% with relative severe hypokinesis of the basal to mid inferior wall. CONCLUSIONS: 1. Adequate response to Lexiscan. 2. Clinically negative for chest pain. 3. Electrocardiographically baseline ST and T-wave abnormality did not change significantly following administration of Lexiscan. 4. Lexiscan sestamibi images demonstrate a medium-sized fixed moderate perfusion defect in the basal to mid inferior wall with corresponding severe hypokinesis suggestive of previous basal to mid inferior infarction. There is no convincing scintigraphic evidence of inducible myocardial ischemia. Calculated left ventricular ejection fraction 45%. cc: MD Adam Brown MD
[2019-07-20] MEDS: FLONASE NAS SCH (15:12)
--- NOTE | 2019-07-20 22:01 | PULMONOLOGY PROGRESS NOTE ---
DATE: 07/20/2019 SUBJECTIVE: The patient is back from his myocardial perfusion scan. Calculated ejection fraction is 45% without evidence of reversible ischemia. Pulmonary function studies were reviewed. He has severe obstruction with an FEV1 in the 40% range. He increases by 12% after the bronchodilator but does not reach the 200 cc threshold. He reports he is being prepared for discharge. OBJECTIVE: Physical exam reveals a thin white male, resting comfortably in no distress. Blood pressure 153/53, heart rate 62, respiratory rate 14, oxygen saturation 94%.HEENT: Pupils are equal and reactive. Oropharynx appears clear. Neck is supple. Chest reveals prolonged expiratory phase. Cardiac exam: S1, S2. Abdomen is soft and without hepatosplenomegaly. Extremities without edema. IMPRESSION: A 69-year-old with: 1. Severe chronic obstructive pulmonary disease, with borderline improvement following bronchodilator. 2. Coronary artery disease, with mild left ventricular dysfunction. 3. Dyspnea. 4. Uncontrolled diabetes. DISCUSSION: A 69-year-old with problems outlined above. A component of his fatigue/loss of sense of wellbeing is likely related to his uncontrolled diabetes. The patient was encouraged to be responsible for his sugars and see if he could obtain a normal hemoglobin A1c. The patient might benefit from a long-acting beta agonist/inhaled corticosteroid, and this could be initiated as an outpatient. I would be glad to see him in followup. RECOMMENDATIONS: 1. Anticipate discharge home today. 2. Encourage yearly influenza vaccines. 3. Encourage the patient to begin an exercise program. 4. Encourage the patient to be responsible for his blood sugars and to control his hemoglobin A1c. 5. Consider outpatient bronchodilators. I would be glad to see him as an outpatient in the office. cc: MD Scotty Benson MD
--- NOTE | 2019-07-21 14:26 | DISCHARGE SUMMARY ---
ADMISSION DATE: 07/19/2019 DISCHARGE DATE: 07/20/2019 FOLLOW UP: 1. Dr. Scotty Aguilar. 2. Dr. Helm. 3. Dr. Jackson. CONSULTATIONS DURING ADMISSION: 1. Cardiology was consulted. Patient was seen by Dr. Jackson. 2. Nephrology was consulted. Patient was seen by Dr. Helm. INVASIVE PROCEDURES DONE DURING ADMISSION: None. IMAGING STUDIES OF SIGNIFICANCE: 1. A chest x-ray did show emphysema. 2. A myocardial perfusion scan shows an ejection fraction of 45%. No evidence of inducible myocardial ischemia. There was however a medium-size fixed moderate perfusion defect in the basilar to mid inferior wall corresponding with severe hypokinesis suggestive of previous basal to mid inferior infarction. ADMISSION DIAGNOSES: 1. Acute dyspnea. 2. Elevated troponins. 3. Diabetes mellitus. 4. Chronic kidney disease. DIAGNOSES AT THE TIME OF DISCHARGE: 1. Acute hypoxemic respiratory failure secondary to pulmonary edema from congestive heart failure resolved. 2. Acute on chronic systolic heart failure, previous ejection fraction on echocardiogram on 04/28/2019 was 20% with severe global hypokinesis. However, a stress test which was done this morning shows an ejection fraction of about 45%. 3. Ischemic cardiomyopathy. 4. Emphysema with history of tobacco use, suspected to have an underlying COPD. The patient was evaluated by Pulmonary Medicine. PFTs were done and he will follow up accordingly with Dr. Vieira. 5. Uncontrolled diabetes mellitus. The patient has been uptitrated on his insulin regimen. 6. Chronic kidney disease stage IIIB. The patient was evaluated by Nephrology, and has been advised to follow up with them. PRESENTING COMPLAINT: Shortness of breath. HISTORY OF PRESENTING COMPLAINT: Mr. Weber is a 69 year old male with history of CKD, coronary artery disease status post CABG in the past, congestive heart failure, and diabetes, who came to the emergency department because of shortness of breath associated with orthopnea. Upon presentation, he was evaluated. His pro B was slightly elevated. His chest x-ray suggested emphysema. He was admitted for possible CHF exacerbation and undiagnosed COPD. HOSPITAL COURSE: Mr. Weber was given a couple doses of Lasix. Overnight, his breathing became better. His saturation got improved. He was evaluated by Pulmonary Medicine, and Dr. Beard's note seems to suggest that it was hard to determine which of the symptoms was attributed to the lungs and which was attributed to the to the heart. PFTs were done. However, at the time of the discharge, the results were not ready. Mr. Weber was also evaluated by Cardiology. Dr. Jackson thought that a stress test needed to be done, which was successfully done. The EF on the stress test showed that it had improved to about 45%, and that there was some scar imaging, but no inducible ischemia. Mr. Weber was also evaluated by Nephrology because of the CKD. His creatinine, however, has being almost at his baseline. We have advised that he follows up with Dr. Helm's team on an outpatient base. This morning Mr. Weber refers to be doing a whole lot better. Respiratory status has significantly improved. He has no more wheezing. He is not on any supplemental oxygen. From Cardiology standpoint, they think the patient can be discharged. He is going to follow up with Pulmonary Medicine, Nephrology, and Cardiology as outpatient. All the discharge instructions have been discussed with him, and he voiced understanding. DISCHARGE MEDICATIONS: Mr. Weber will be discharged on the following medications. 1. Aspirin 81 mg p.o. daily. 2. Coreg 6.25 p.o. q.12. 3. Crestor 20 mg p.o. daily. 4. 125 p.o. daily. 5. Spironolactone 12.5 p.o. daily. 6. Furosemide 40 mg b.i.d. 7. Losartan 15 mg p.o. daily. 8. Insulin has been increased to 15 units subcutaneous at bedtime. TIME SPENT FOR DISCHARGE: 35 minutes. cc: MD REJI Bhandari
--- NOTE | 2019-07-26 19:55 | PULMONARY FUNCTION REPORT ---
DATE: 07/20/2019 REQUESTING CLINICIAN: Alvarado Vieira MD CLINICAL HISTORY: A 69 year old with a 44 pack-year history for tobacco and shortness of breath after any exertion. SPIROMETRY: The forced vital capacity is 2.78 L or 63% of predicted. The FEV1 is 1.41 L or 42% of predicted. The FEV1/FVC ratio is 51%. The FEF 25-75 is 0.54 L/second or 21% of predicted. The FEV1 increases following bronchodilator but the increase is less than 200 mL. LUNG VOLUMES: Total lung capacity is 6.14 L or 87% of predicted. The residual volume is 3.26 L or 136% of predicted. The FRC is 3.34 L or 90% of predicted. DIFFUSION: Capacity of not corrected for hemoglobin level is severely reduced at 9.98 mL/minute per mmHg or 30% of predicted. IMPRESSION: 1. Severe obstruction without definite improvement following bronchodilator. 2. Mild air trapping on lung volumes. 3. Severe reduction in diffusion capacity. cc: Alvarado Vieira MD
== END 2019-07-20 18:24 | disposition home or self-care (01) | DRG 291 ==
LOC: ED 23:00 → SUATTDRO 07-19 04:29 → 3N 07-19 04:29
PROVIDERS: ATTEND Internal Medicine

== ENCOUNTER 2019-07-24 11:50 | Inpatient (IN) ==
[2019-07-24 12:54] LABS: BASO# 0.02 X1000 (0.0-0.2); BASO% 0.1 % (0.0-0.8); EOS# 0.01 X1000 (0.0-0.7); HEMATOCRIT 46.5 % (42.0-52.0); HEMOGLOBIN 15.9 g/dL (14.0-18.0); IMM GRAN# 0.19 X1000 (0.0-0.04); IMM GRAN% 0.8 % (0.0-0.5); LYMPH# 1.46 X1000 (1.2-3.4); LYMPH% 6.4 % (20.5-51.1); MCH 28.2 PG (27-31); MCHC 34.2 g/dL (33-37); MCV 82.4 FL (81-99); MONO# 1.16 X1000 (0.11-0.59); MONO% 5.1 % (1.7-9.3); MPV 10.9 FL (7.4-10.4); NEUT# 20.07 X1000 (1.4-6.5); NEUT% 87.6 % (42.2-75.2); PLT 319 X1000 (130-400); RBC 5.64 XMIL (4.7-6.1); RDW 12.6 % (11.5-14.5); WBC 22.91 X1000 (4.8-10.8)
[2019-07-24 13:35] LABS: ALBUMIN 4.1 g/dL (3.5-5.0); CALCIUM 10.1 mg/dL (8.8-10.2); CREATININE 2.5 mg/dL (0.7-1.2); POTASSIUM 5.1 mmol/L (3.5-5.1); TOTAL BILIRUBIN 0.44 mg/dL (0.20-1.00); TOTAL PROTEIN 8.3 g/dL (6.3-8.3)
[2019-07-24] MEDS ORDERED: HUMULIN R IV ONE (13:42)
[2019-07-24] MEDS ORDERED: NS 1,000 ML IV ONE ×2 (13:42→14:13)
[2019-07-24 14:41] LABS: URINE SOURCE CLEAN CATCH
[2019-07-24 14:58] LABS: BILIRUBIN URINE NEGATIVE (NEGATIVE); BLOOD URINE NEGATIVE (NEGATIVE); COLOR STRAW; GLUCOSE URINE >1000 mg/dL (NEGATIVE); KETONE URINE NEGATIVE (NEGATIVE); LEUKOCYTES URINE NEGATIVE (NEGATIVE); NITRITE URINE NEGATIVE (NEGATIVE); PROTEIN URINE NEGATIVE (NEGATIVE); SP GRAVITY URINE 1.017; TURBIDITY URINE CLEAR (CLEAR); UROBILINOGEN URINE NORMAL (NORMAL)
[2019-07-24 14:59] LABS: UR EPITHELIAL CELLS <10 /HPF (<10); URINE BACTERIA NEGATIVE /HPF; URINE RBC <10 /HPF (<10); URINE WBC <10 /HPF (<10)
--- NOTE | 2019-07-24 15:35 | Diag Imaging Result Doc PS360 ---
EXAM: CHEST-PORTABLE 07/24/2019 HISTORY: history of CHF TECHNIQUE: AP portable upright at 1527 COMMENT: There is a calcified granuloma in the right upper lobe. There are sternotomy wires. There has been no significant change in the appearance the chest since 07/18/2019. IMPRESSION: Stable chest. Electronically signed by Paras Nichols 07/24/2019 3:32 PM
[2019-07-24] MEDS ORDERED: ZOFRAN IV PRN (16:30)
[2019-07-24] MEDS ORDERED: TYLENOL PO PRN (16:30)
[2019-07-24] MEDS ORDERED: ROCEPHIN 1 GM in NS 50 ML IV ONE (16:30)
--- NOTE | 2019-07-24 16:32 | PROVIDER DOCUMENTATION ---
This chart was entered by Yanely Mckeon Scribe, acting as scribe for Janessa Kinney MD. HPI-General Adult - General Chief Complaint: High Blood Sugar Stated Complaint: HIGH BLOOD SUGAR Time Seen by Provider: 07/24/19 12:01 Source: patient Allergies/Adverse Reactions: Patient Allergies Allergy/AdvReac Type Severity Reaction Status Date / Time Penicillins Allergy Unknown Verified 07/24/19 15:01 Home Medications: Home Medication List Medication Instructions Recorded Confirmed Last Taken Type Aspirin 81 mg PO DAILY #30 chewtab 03/01/18 07/24/19 04/27/19 08:00 Rx Carvedilol [Coreg] 6.25 mg PO Q12HR #60 tab 06/28/18 07/24/19 04/27/19 20:00 Rx ROSUVAstatin [Crestor] 20 mg PO DAILY #90 tab 04/30/19 07/24/19 1 Day Ago Rx ~07/07/19 Digoxin 125 mcg PO QAM 07/08/19 07/24/19 Unknown History Spironolactone [Aldactone] 12.5 mg PO QPM 07/08/19 07/24/19 Unknown History Furosemide [Lasix] 40 mg PO BID #60 tab 07/10/19 07/24/19 Unknown Rx Losartan [Cozaar] 50 mg PO DAILY #0 07/10/19 07/24/19 Unknown Rx Insulin Glargine,Hum.rec.anlog 15 units SQ QHS #1 insuln.pen 07/20/19 07/24/19 Unknown Rx [Lantus Solostar] - History of Present Illness -Gen Adult Nature of Presenting Problems: 69 yowm presents to the ed with c/o dizziness and unsteady gait and pcp office sent to ed for BGL greater 500. pt has hrecently been seen for URI and is currently on abx and was given a steroid shot. cold sx have improved and pt is nontoxic in appearance Location of Pain/Injury: reports: none Pain Radiation: reports: no radiation Quality of Pain: reports: none Severity: reports: moderate Onset/Duration: reports: gradual Timing: reports: still present, intermittent Context/Activities at Onset: reports: light activity Modifying Factors: worse with: exercise Associated Symptoms: reports: dizziness, trouble walking (unsteady gait). denies: back/neck pain, chest pain, shortness of breath, syncope Similar Symptoms Previously?: Yes (IDDM) Recently seen or treated by another doctor?: Yes (PCP) - Diabetes Related Context Context: reports: high blood sugar (greater 500) Review of Systems - Adult - REVIEW OF SYSTEMS - ADULT Constitutional: denies: chills, fever Eyes: reports: no symptoms reported Ears, Nose, Mouth & Throat: reports: no symptoms reported Cardiovascular: denies: chest pain, palpitations Respiratory: denies: cough, shortness of breath, wheezing Gastrointestinal: denies: diarrhea, nausea, vomiting Genitourinary: reports: no symptoms reported Musculoskeletal: reports: no symptoms reported Integumentary: reports: no symptoms reported Neurological: reports: see HPI, dizziness/vertigo, loss of balance. denies: ataxia, headache/migraines, syncope, tremors Psychiatric: reports: no symptoms reported Endocrine: reports: no symptoms reported Hematologic/Lymphatic: reports: no symptoms reported Allergic/Immunologic: reports: no symptoms reported All Other Systems: Reviewed and Negative Past History - Adult - PAST MEDICAL HISTORY-ADULT Review of Records: reports: Old Records Reviewed, Nursing Assessment Review, Medications Reviewed, Social history reviewed & non-contributory. Major Childhood Illnesses: reports: denies history Cardiovascular: reports: CAD, HTN, hyperlipidemia, MS Respiratory: reports: denies history Gastrointestinal: reports: denies history Genitourinary: reports: denies history Musculoskeletal: reports: denies history Hand Dominance: Right Handed Neurological: reports: denies history Psychiatric: reports: denies history Endocrine/Immune: reports: denies history Other Conditions: reports: denies history - PRIOR SURGERIES/PROCEDURES Surgical/Procedure History: reports: appendectomy, CABG, tonsillectomy, orthopedic (extremity) - IMMUNIZATION STATUS Childhood Immunizations: See Nurse Assessment Flu Vaccine: See Nurse Assessment - FAMILY HISTORY Family History: other (heart disease) - SOCIAL HISTORY Smoking: quit greater than 1 year Substance Use: alcohol Alcohol Use Frequency: twice a week Number of drinks per typical drinking period:: 2 drinks Living Situation: family Physical Exam-General - PHYSICAL EXAM-ADULT Initial Vital Signs Reviewed: Yes - CONSTITUTIONAL General Appearance: appears well, alert, no apparent distress (pt c/o dizziness and unsteady gait), obese - EYES Eyes: PERRL/EOMI, pink conjunctivae - HEAD, EARS, NOSE, MOUTH & THROAT HENMT: moist mucous membranes, dental decay - NECK Neck: non-tender, full range of motion, supple, normal inspection - RESPIRATORY Respiratory: chest non-tender, lungs clear, normal breath sounds - CARDIOVASCULAR Cardiovascular: normal peripheral pulses, regular rate, rhythm - CHEST (BREASTS) Chest/Breast: deferred - GASTROINTESTINAL (ABDOMEN) Abdominal Exam: normal bowel sounds, non tender, soft, other (ecchymosis seen on abd) - GENITOURINARY Male Genitalia: deferred Rectal Exam: deferred Hemoccult Exam: deferred - LYMPHATIC Lymphatic: no adenopathy - MUSCULOSKELETAL Back Exam: no CVA tenderness, no vertebral tenderness Extremity: normal range of motion, non-tender, normal inspection. negative: normal gait - SKIN Integumentary: normal color, normal turgor, warm/dry - NEUROLOGIC Neurologic: grossly normal - PSYCHIATRIC Psych/Mental Status: normal mood/affect, normal thought content, normal thought process, oriented x 3 Progress - PLAN OF CARE/RESULTS Progress/Plan/Lab Results: Vital Signs - 8 hr 07/24/19 11:54 Temperature 97.5 F L Pulse Rate 93 H Respiratory Rate 18 Blood Pressure 143/81 O2 Sat by Pulse Oximetry 100 Laboratory Results - last 24 hr 07/24/19 11:56 POC Glucose 500 H Orders Category Date Time Status Saline Loc DIRECTED Care 07/24/19 12:01 Active NPO Diet 07/24/19 12:01 Active AMYLASE [CHEM] Stat Lab 07/24/19 12:01 Uncollected CBC WITH ELECTRONIC DIFF [HEME] Stat Lab 07/24/19 12:01 Uncollected COMPREHENSIVE METABOLIC PANEL [CHEM] Stat Lab 07/24/19 12:01 Uncollected LIPASE [CHEM] Stat Lab 07/24/19 12:01 Uncollected URINALYSIS W/POSS RFLX CULT [URINALYSIS] Stat Lab 07/24/19 12:01 Uncollected Result Diagrams: 07/24/19 12:02 07/24/19 12:02 - REASSESSMENT Reassessment #1 Time Reassessed: 13:05 Status: improving (pt is resting) Reassessment #2 Time Reassessed: 16:28 Status: unchanged (resting) - CONSULTS/PCP/HOSPITALIST Notification #1 *Consult/PCP/Hospitalist*: hospitalist dr barrett Time Discussed: 16:29 Consult Disposition: Will see in ED, Admit Departure - Departure Date of Disposition Decision: 07/24/19 Time of Disposition Decision: 16:02 DIAGNOSIS: Hyperglycemia Leukocytosis Qualifiers: Leukocytosis type: unspecified Qualified Code(s): D72.829 - Elevated white blood cell count, unspecified Disposition: ADMITTED INPATIENT 09 Certified Medical Emergency: Emergent Condition: Good Referrals and Follow-Ups: Scotty Aguilar MD [Primary Care Provider] - - Critical Care Note This patient required my direct & personal management of CC.: Yes Total Time (mins): 36 Critical Care Statement: This patient required my direct personal management to treat or rule out processes, the absence of which, could potentiallly result in sudden, clinically significant life or limb threatening deterioration. Attestation - Physician/ ALVIN Attestation Patient care was provided by Advanced Practice Provider:: No The physician spent face to face time with patient:: Yes Advanced Practice Provider documentation review:: Supervising physician onsite and consulted in the evaluation and care of this patient. The physician did have a face to face encounter with the patient. This chart was documented by the indicated scribe, (Yanely Mckeon Scribe) and accurately reflects the services I performed and decisions made by me, Janessa Kinney MD, as attested by the provider's signature.
[2019-07-24] MEDS ORDERED: NS 1,000 ML IV SCH (17:00)
--- NOTE | 2019-07-24 17:41 | HISTORY AND PHYSICAL ---
The story is he was here just last week. He had a workup, and they found COPD. I think he had some pleural effusions and some questionable left ventricular dysfunction as well. Past medical history is recently diagnosed congestive heart failure, coronary artery disease status post CABG, diabetes mellitus type 2, hyperlipidemia, chronic kidney disease, and he had some upper airway congestion, postnasal drainage. He went to an outpatient clinic. He got a steroid shot, and I think an antibiotic. His doctor is Dr. Scotty Aguilar. He saw Dr. Scotty Aguilar today. He did complain of some dizziness, lightheadedness, but Dr. Aguilar saw that the blood sugar was very high, did not register on the glucometer and so sent him here to the hospital where his sugars were above 500. He denies fever or chills, denies chest pain. He is not very diligent about checking his sugar. He is on some Lantus insulin at home. He has noticed that it has been running above 300. His son states that he does not follow a diabetic diet very much, drinks a lot of chocolate milk and Dr. Wilson. PAST MEDICAL HISTORY: 1. Coronary artery disease status post CABG. 2. Congestive heart failure with last known ejection fraction was 20%. 3. Diabetes mellitus type 2. 4. Hypertension. 5. Chronic kidney disease. 6. COPD. 7. Hyperlipidemia. PAST SURGICAL HISTORY: He has had three-vessel bypass in 2013, status post tonsillectomy, status post appendectomy, status post bilateral knee arthroplasty. FAMILY HISTORY: Positive for heart disease. SOCIAL HISTORY: No current history of cigarette smoking or alcohol or drug use. ALLERGIES: He is allergic to penicillin. REVIEW OF SYSTEMS: General: No weight gain or loss. No fever or chills. HEENT: No change in vision or hearing acuity. No neck pain or adenopathy. Respiratory: No increased work of breathing or dyspnea. Cardiovascular: No chest pain or tachy palpitation. Gastrointestinal/Genitourinary: No change in his bowels reported. No gross hematochezia or hematuria. Musculoskeletal/Neurologic: No focal complaints or changes. Endocrinologic/hemologic: No significant history other than his sugars were very high and seemed to have a little bit of orthostasis. PHYSICAL EXAMINATION: VITAL SIGNS/GENERAL: In the emergency room, temperature 97.5 degrees. He is awake, alert and oriented x3. His son is at the bedside. Very pleasant. Pulse 80, respirations 15, blood pressure 159/83. EYES: Pupils are equal and round. LUNGS: Clear in all lung arnold anterolateral. CARDIOVASCULAR EXAM: Regular rhythm and rate without murmur or S3. ABDOMEN: Soft. SKIN: Warm and dry. Weight 180 pounds, height 5 feet 10 inches. NEUROLOGIC: Pupils are equal and round. CVP less than 6 cm from right atrium. Carotid, radial and femoral pulses 2+ and symmetrical. ABDOMEN: Soft, nondistended, nontender. EXTREMITIES: No pedal edema. SKIN: Without rashes. NECK: Supple without adenopathy. ENT: No oral or nasal mucosa lesions. LABORATORY DATA: White count 22,910, hematocrit 46, platelet count 319,000, sodium 124, potassium 5.1, chloride 85, BUN is 62, creatinine is 2.5. Looking back at his previous creatinine, it was 1.9 in July. It was 1.5 back in April of 2019. Blood sugar was 778 for serum blood sugar. Albumin 4.1. Liver enzymes, transaminases unremarkable. ProBNP was 9511. Urinalysis unremarkable. Chest x-ray: Stable chest. There was calcific granuloma in the right upper lobe. There are sternotomy wires. No sign of significant pulmonary venous hypertension or infiltrate. ASSESSMENT AND PLAN: 1. He has hyperosmolar hyperglycemia. He does not have diabetic ketoacidosis, but we need to get his sugar down. I think his sugar is high because of recent steroid injection so we will put him on a sliding scale put him on the high side of the sliding scale and get his sugar down and see if we can regulate it. We will check a hemoglobin A1c in the morning. Also just check a lipid profile. We will check his T4, TSH, B12, and folate. 2. History of congestive heart failure. Most recent ejection fraction was 20%. His proBNP is 9511, but clinically he does not appear to be volume overloaded and does not appear to have pulmonary venous hypertension. We are going to give him some fluids gently at 50 mL normal saline every hour. 3. Diabetes mellitus type 2. 4. Chronic obstructive pulmonary disease. Aware. REVIEW OF HIS MEDICATIONS: He is on aspirin 81 mg a day, Coreg 6.25 mg q.12, digoxin 125 mg p.o. daily. We will check a digoxin level in the morning as well. He is on Lasix 40 mg p.o. b.i.d., Lantus he told me 6 units, but I think he is supposed to get 15 units at bedtime and so we will resume that. Cozaar is 50 mg p.o. daily, Crestor is 20 mg a day, and his Aldactone is 12.5 mg q.p.m. We will follow his electrolytes including his magnesium. cc: Ish Shay MD
[2019-07-24] MEDS ORDERED: HUMALOG SUBQ SCH ×2 (18:00→21:25)
[2019-07-24] MEDS ORDERED: NS 500 ML IV SCH (21:30)
[2019-07-24] MEDS: HUMALOG SUBQ SCH (22:17)
[2019-07-24] MEDS: LANTUS INSULIN SUBQ SCH (22:25)
[2019-07-24] MEDS: CRESTOR PO SCH (22:25)
[2019-07-25] MEDS: HUMALOG SUBQ SCH ×6 (00:46→23:06)
[2019-07-25] MEDS ORDERED: HUMALOG SUBQ SCH ×2 (01:00→07:00)
[2019-07-25 07:43] LABS: HEMOGLOBIN A1C 12.2 % (4.8-6.0)
[2019-07-25 07:45] LABS: CHOLESTEROL 140 mg/dL (0-200); DIGOXIN 0.8 ng/mL (0.9-2.0); HDL 39 mg/dL (35-55); LDL 79 mg/dL; MAGNESIUM 2.7 mg/dL (1.5-2.7); TRIGLYCERIDES 110 mg/dL (39-160); VLDL 22 mg/dL
[2019-07-25 07:46] LABS: CALCIUM 9.8 mg/dL (8.8-10.2); CREATININE 2.2 mg/dL (0.7-1.2); POTASSIUM 4.5 mmol/L (3.5-5.1)
[2019-07-25 07:48] LABS: BASO# 0.03 X1000 (0.0-0.2); BASO% 0.1 % (0.0-0.8); EOS# 0.08 X1000 (0.0-0.7); EOS% 0.3 % (0.0-10.0); HEMATOCRIT 45.1 % (42.0-52.0); HEMOGLOBIN 15.6 g/dL (14.0-18.0); IMM GRAN# 0.18 X1000 (0.0-0.04); IMM GRAN% 0.7 % (0.0-0.5); LYMPH# 2.15 X1000 (1.2-3.4); LYMPH% 8.3 % (20.5-51.1); MCH 28.5 PG (27-31); MCHC 34.6 g/dL (33-37); MCV 82.4 FL (81-99); MONO# 1.92 X1000 (0.11-0.59); MONO% 7.5 % (1.7-9.3); MPV 10.4 FL (7.4-10.4); NEUT% 83.1 % (42.2-75.2); PLT 319 X1000 (130-400); RBC 5.47 XMIL (4.7-6.1); RDW 12.9 % (11.5-14.5); WBC 25.76 X1000 (4.8-10.8)
[2019-07-25 08:03] LABS: FREE T4 1.39 ng/dL (0.93-1.70); TSH 0.86 uIUmL (0.27-4.20)
[2019-07-25 08:29] LABS: BANDS 6 % (0-1); LYMPHS 10 % (21-51); MONO 10 % (1-9); SEGS 74 % (42-75)
[2019-07-25] MEDS: ASPIRIN PO SCH (10:34)
[2019-07-25] MEDS: LANOXIN PO SCH (10:34)
[2019-07-25] MEDS: COREG PO SCH ×2 (10:34→22:33)
[2019-07-25] MEDS: COZAAR PO SCH (10:34)
[2019-07-25] MEDS: LASIX PO SCH ×2 (10:34→22:33)
--- NOTE | 2019-07-25 14:11 | PROGRESS NOTE ---
DATE: 07/25/2019 SUBJECTIVE: Mr. Weber said he got up this morning, had a pretty decent night but felt very weak. He checked his sugar in total was 80 and he hasn't really felt much better the whole day. He did recently take a shower but feels very lightheaded. OBJECTIVE: Temperature 98 degrees, pulse 88, respirations 16, blood pressure 156/77. Pupils are equal and round. Lungs are clear in all lung arnold. Cardiovascular regular rate without murmur or S3. LABORATORY DATA: Note that his white count was 25,760, hematocrit 45, platelet count 319,000. Chemistry: Sodium 136, potassium 4.5, chloride 97 BUN 65, creatinine 2.2, which has actually come down from 2.5. His sodium has actually come up from 125 to 136, all that is encouraging, but his blood sugar was 286. He had an 82. Previous 3 were 505 187, 500. He had an 81. Subsequently sugars have been 112, then 286, so not sure I believe those numbers. Chest x-ray was unremarkable. Calcified granuloma in the right upper lobe. REVIEW OF HIS ORDERS: Continue his current medication. Blood pressure looks good. Blood sugars are still kind of sporadic. He is on a diabetic diet. Hopefully, these are going to stabilize. He recently had a large steroid injection. cc: Ish Shay MD
[2019-07-25] MEDS: ALDACTONE PO SCH (22:34)
[2019-07-25] MEDS: LANTUS INSULIN SUBQ SCH (22:34)
[2019-07-25] MEDS: CRESTOR PO SCH (22:34)
[2019-07-26] MEDS: HUMALOG SUBQ SCH ×6 (01:09→21:59)
[2019-07-26] MEDS: LANOXIN PO SCH (09:32)
[2019-07-26] MEDS: COREG PO SCH ×2 (09:32→21:58)
[2019-07-26] MEDS: ASPIRIN PO SCH (09:33)
[2019-07-26] MEDS: COZAAR PO SCH (09:33)
[2019-07-26] MEDS: LASIX PO SCH ×2 (09:33→21:59)
--- NOTE | 2019-07-26 13:12 | PROGRESS NOTE ---
DATE: 07/26/2019 SUBJECTIVE: Mr. Weber says he just does not feel much better. He still has his dizziness, but he feels like the dizziness is more of a spinning unsteadiness. His right ear feels like it has pressure. OBJECTIVE: Vital signs: He remains afebrile, temperature 98 degrees, pulse 70, respirations 20, blood pressure 132/72. HEENT: Pupils are equal and round. Lungs: Lungs are clear anterolateral and posterior. Cardiovascular: Regular rhythm and rate without murmur or S3. Abdomen: Abdomen is soft. Skin: Warm and dry. DIAGNOSTIC DATA: Blood sugars 225, 122, and 275. His white count when he came in was 22,000. On repeat was 25,000. I am going to repeat that again in the morning. Hematocrit was 46, platelet count 319,000. Sodium was 124 when he came in and then later on that day was 136, so has corrected. His creatinine went from 2.5 to 2.2. Blood sugars were very high at 700 when he came in, and they have come down nicely. ASSESSMENT AND PLAN: So I am going to put him on a little bit of meclizine, and I will give him some guaifenesin to try and get his secretions down, nasal spray with Flonase and see if we get any improvement. Hopefully can go home tomorrow. On review of his medications, right now he is on aspirin 81 mg a day, Coreg 6.25 mg q.12, digoxin 125 mg q.a.m. He gets Lasix 40 mg p.o. twice a day, Lantus insulin 15 units at bedtime. He has a history of CABG bypass. He has congestive heart failure with reduced ejection fraction. Ejection fraction last measured 20%. Underlying diabetes and chronic kidney disease. Creatinine was 2.2. When he presented, it was 2.5, so that is improved. cc: Ish Shay MD
[2019-07-26] MEDS: ANTIVERT PO SCH ×2 (13:20→17:54)
[2019-07-26] MEDS: MUCINEX PO SCH ×2 (13:21→21:57)
[2019-07-26] MEDS: FLONASE NAS SCH ×3 (15:17→21:57)
[2019-07-26] MEDS: ALDACTONE PO SCH (21:58)
[2019-07-26] MEDS: CRESTOR PO SCH (21:59)
[2019-07-26] MEDS: LANTUS INSULIN SUBQ SCH (22:01)
[2019-07-27] MEDS: HUMALOG SUBQ SCH ×6 (01:44→21:00)
[2019-07-27 08:27] LABS: BASO# 0.03 X1000 (0.0-0.2); BASO% 0.2 % (0.0-0.8); EOS% 3.3 % (0.0-10.0); HEMATOCRIT 47.5 % (42.0-52.0); HEMOGLOBIN 15.9 g/dL (14.0-18.0); IMM GRAN# 0.15 X1000 (0.0-0.04); IMM GRAN% 1.2 % (0.0-0.5); LYMPH# 3.28 X1000 (1.2-3.4); LYMPH% 26.8 % (20.5-51.1); MCH 28.4 PG (27-31); MCHC 33.5 g/dL (33-37); MCV 84.8 FL (81-99); MONO# 1.36 X1000 (0.11-0.59); MONO% 11.1 % (1.7-9.3); MPV 10.4 FL (7.4-10.4); NEUT# 7.02 X1000 (1.4-6.5); NEUT% 57.4 % (42.2-75.2); PLT 286 X1000 (130-400); RDW 13.4 % (11.5-14.5); WBC 12.24 X1000 (4.8-10.8)
[2019-07-27 08:34] LABS: CALCIUM 9.3 mg/dL (8.8-10.2); CREATININE 2.2 mg/dL (0.7-1.2); MAGNESIUM 2.7 mg/dL (1.5-2.7); POTASSIUM 4.3 mmol/L (3.5-5.1)
[2019-07-27] MEDS: FLONASE NAS SCH ×2 (09:18→20:16)
[2019-07-27] MEDS: MUCINEX PO SCH ×2 (09:18→20:15)
[2019-07-27] MEDS: ANTIVERT PO SCH ×3 (09:18→17:23)
[2019-07-27] MEDS: COZAAR PO SCH (09:19)
[2019-07-27] MEDS: LASIX PO SCH ×2 (09:19→21:02)
[2019-07-27] MEDS: LANOXIN PO SCH (09:19)
[2019-07-27] MEDS: COREG PO SCH ×2 (09:19→20:16)
[2019-07-27] MEDS: ASPIRIN PO SCH (09:19)
--- NOTE | 2019-07-27 09:32 | DISCHARGE SUMMARY ---
ADMISSION DATE: 07/24/2019 DISCHARGE DATE: 07/27/2019 HISTORY OF PRESENT ILLNESS: This is a 69-year-old. They found that he had COPD on workup, some pleural effusions, some questionable left ventricular dysfunction as well. PAST MEDICAL HISTORY: Recently diagnosed congestive heart failure, coronary artery disease status post CABG, diabetes mellitus type 2, hyperlipidemia, chronic kidney disease. He has had some upper airway congestion, postnasal drainage. HOSPITAL COURSE: He went to outpatient clinic. He got a steroid shot and an antibiotic. His doctor is Dr. Scotty Aguilar, and following that, he felt dizzy and lightheaded. His blood sugar was very high when he came in to see Dr. Aguilar, above 500, so he was sent here to the emergency room. His main complaint was dizziness, which sounds more vertiginous and sugars being high. The following morning, he still did not feel very good. I put him on some meclizine. We did give him a sliding scale. I suspect the sugar is high because of the steroid injection. He had an elevated white count when he came in. Did not find any active infection, and felt like that was demargination. On followup on white blood cell count, it came down to 12,024. His chemistries when he first came in were unremarkable. Sugars came down, like I said, with sliding scale, and he wanted to go home, so I let him go home on 07/27/2019. HOME MEDICATIONS: Aspirin 81 mg a day, Coreg 6.25 mg every 12 hours, digoxin 125 mcg a day, Lasix 40 mg twice a day. He takes Lantus SoloStar 15 units at bedtime, Cozaar 50 mg a day, Crestor 20 mg at bedtime, and spironolactone 12.5 mg every p.m. I will give him some meclizine to use p.r.n. vertigo, and hopefully can go home this afternoon. cc: Ish Shay MD
[2019-07-27] MEDS: CRESTOR PO SCH (20:15)
[2019-07-27] MEDS: ALDACTONE PO SCH (20:16)
[2019-07-27] MEDS: LANTUS INSULIN SUBQ SCH (21:00)
[2019-07-28] MEDS: HUMALOG SUBQ SCH ×6 (02:19→22:34)
[2019-07-28] MEDS: LANOXIN PO SCH (08:14)
[2019-07-28] MEDS: MUCINEX PO SCH ×2 (08:15→22:20)
[2019-07-28] MEDS: ANTIVERT PO SCH ×2 (08:15→13:52)
[2019-07-28] MEDS: LASIX PO SCH (08:15)
[2019-07-28] MEDS: COZAAR PO SCH (08:15)
[2019-07-28] MEDS: ASPIRIN PO SCH (08:15)
[2019-07-28] MEDS: COREG PO SCH ×2 (08:15→22:34)
[2019-07-28] MEDS: FLONASE NAS SCH ×2 (08:46→22:20)
--- NOTE | 2019-07-28 18:18 | PROGRESS NOTE ---
DATE: 07/09/2019 SUBJECTIVE: I have seen and examined Mr. Weebr today who was apparently discharged yesterday. However, he said his glucose had been very high, and that he has been also very dizzy especially getting up and moving around caused a lot of dizziness so he could not be discharged yesterday. OBJECTIVE: Vital Signs: Blood pressure 124/65, pulse of 83, respirations 14, and temperature 98.1 degrees. General: Mr. Weber is a 69-year-old gentleman. He is in bed in no distress. HEENT: Mucosa is pink, slightly dry. Anicteric. Acyanotic. Neck: Supple. Chest: Clear to auscultation. Cardiovascular: Regular rate and rhythm. Abdomen: Soft, nontender. Bowel sounds present. Extremities: No pedal edema. VIDEO SPECIALIST: Patient is awake, alert, and oriented. LABORATORY DATA: None for this morning. Glucose was 386. ASSESSMENT: 1. Dizziness on orthostatics, questionable for orthostatic hypotension. We will check the patient's orthostatic vitals. We will also start him on gentle fluids. 2. Clinical volume depletion. I have withheld the patient's diuretics for today. We will hydrate him. Recheck his orthostatic vitals. 3. Uncontrolled diabetes mellitus presenting A1c of 12.2. Patient is on insulin regimen. 4. Elevated white cell count on admission due to steroids. cc: Andrew Silva MD MTDD
[2019-07-28] MEDS: NS 1,000 ML IV SCH ×2 (18:55)
[2019-07-28] MEDS: CRESTOR PO SCH (22:34)
[2019-07-29] MEDS: LANTUS INSULIN SUBQ SCH (00:34)
[2019-07-29] MEDS: HUMALOG SUBQ SCH ×7 (02:34→21:17)
[2019-07-29] MEDS: NS 1,000 ML IV SCH ×3 (06:18→15:55)
[2019-07-29 08:40] LABS: ALBUMIN 3.2 g/dL (3.5-5.0); CALCIUM 8.5 mg/dL (8.8-10.2); CREATININE 1.8 mg/dL (0.7-1.2); PHOSPHORUS 3.1 mg/dL (2.7-4.5); POTASSIUM 3.7 mmol/L (3.5-5.1)
[2019-07-29] MEDS: ASPIRIN PO SCH (10:10)
[2019-07-29] MEDS: MUCINEX PO SCH ×2 (10:10→21:17)
[2019-07-29] MEDS: LANOXIN PO SCH (10:10)
[2019-07-29] MEDS: COREG PO SCH ×2 (10:10→21:17)
[2019-07-29] MEDS: FLONASE NAS SCH ×2 (10:10→21:18)
--- NOTE | 2019-07-29 18:08 | PROGRESS NOTE ---
DATE: 07/29/2019 SUBJECTIVE: Today, Mr. Weber refers to be doing a whole lot better. Still slightly dizzy, but for most part he feels stronger. OBJECTIVE: Vital signs: Blood pressure is 152/64, pulse of 57, respirations of 14, temperature is 97.2 degrees. Early on, he had orthostatic vitals which revealed blood pressure in supine 174/60, with a pulse of 62. Blood pressure standing up was 140/93, with a pulse of 147, remarkably positive orthostatic vitals. General: Mr. Weber is a 69-year-old, gentleman. He is in bed. No distress. Mucosa is pink and moist. Anicteric, acyanotic. Neck: Supple. Chest: Good air entry bilaterally. There are no crepitations, no rhonchi. Cardiovascular: Regular rate and rhythm. No murmurs. No rubs. No gallops. Gastrointestinal: Abdomen is soft, nontender. Bowel sounds present. Extremities: No pedal edema. Central nervous system: Patient is awake, alert, oriented. There is no focal deficit. LABORATORY DATA: BUN is down to 52. Creatinine is also down to 1.8. The patient's glucose early on this morning was 67, however, this afternoon it is up to 390. CURRENT MEDICATIONS: All have been reviewed. I have discontinued the patient's Lasix and his Cozaar. ASSESSMENT: 1. Dizziness secondary to orthostatic hypotension. Improved. We are going to continue with IV fluids. Patient's current medications with potential to cause orthostatic hypotension have been discontinued. 2. Clinical volume depletion. We will continue with fluids. 3. Severe uncontrolled diabetes mellitus, presenting A1c of 12.2. We will continue with insulin regimen. 4. Dyslipidemia. Patient is on Crestor. PLAN: In general, I think Mr. Weber is doing better. We are going to continue with the fluids for another day, recheck on his orthostatic vitals tomorrow. For now, blood cultures have been negative. We will continue titrating his insulin for better glycemic control. We will re- evaluate him in the morning and decide if he can be discharged. cc: MD REJI Bhandari
[2019-07-29] MEDS: CRESTOR PO SCH (21:17)
[2019-07-30] MEDS: HUMALOG SUBQ SCH ×6 (01:16→14:19)
[2019-07-30] MEDS: NS 1,000 ML IV SCH ×2 (07:32→12:48)
[2019-07-30 08:13] LABS: HEMATOCRIT 37.9 % (42.0-52.0); HEMOGLOBIN 12.7 g/dL (14.0-18.0); MCH 28.9 PG (27-31); MCHC 33.5 g/dL (33-37); MCV 86.1 FL (81-99); MPV 10.3 FL (7.4-10.4); RBC 4.4 XMIL (4.7-6.1); RDW 13.4 % (11.5-14.5); WBC 12.91 X1000 (4.8-10.8)
[2019-07-30 08:47] LABS: CALCIUM 8.2 mg/dL (8.8-10.2); CREATININE 1.5 mg/dL (0.7-1.2); PHOSPHORUS 2.9 mg/dL (2.7-4.5); POTASSIUM 4.3 mmol/L (3.5-5.1)
[2019-07-30] MEDS ORDERED: LANTUS INSULIN SUBQ SCH (09:00)
[2019-07-30] MEDS: MUCINEX PO SCH ×2 (09:47→09:48)
[2019-07-30] MEDS: COREG PO SCH (09:47)
[2019-07-30] MEDS: LANOXIN PO SCH (09:47)
[2019-07-30] MEDS: ASPIRIN PO SCH (09:47)
[2019-07-30] MEDS: FLONASE NAS SCH (09:49)
[2019-07-30 12:02] VITALS: BP 174/50
--- NOTE | 2019-07-31 19:36 | DISCHARGE SUMMARY ---
ADMISSION DATE: 07/24/2019 DISCHARGE DATE: 07/30/2019 DISPOSITION: Home. FOLLOWUP: 1. Dr. Aguilar. 2. Dr. Quigley. CONSULTATION DURING THIS ADMISSION: None. INVASIVE PROCEDURES DONE DURING THIS ADMISSION: None. IMAGING STUDIES OF SIGNIFICANCE: A chest x-ray showed no changes. ADMISSION DIAGNOSES: 1. Hyperosmolar hyperglycemia. 2. Congestive heart failure. 3. Diabetes mellitus. 4. Chronic obstructive pulmonary disease (COPD). DIAGNOSES AT THE TIME OF DISCHARGE: 1. Dizziness with positive orthostatic vitals, all secondary to intravascular depletion causing orthostatic hypotension. 2. Clinical volume depletion, improved. 3. Severe uncontrolled diabetes mellitus with presenting A1c of 12.2. 4. Dyslipidemia. 5. Leukocytosis on admission, presumably due to recent steroid shots. 6. History of congestive heart failure with ejection fraction of 20% associated with severe global hypokinesis. 7. Ischemic cardiomyopathy. 8. Possible chronic obstructive pulmonary disease (COPD). DISCHARGE MEDICATIONS: 1. Aspirin 81 mg p.o. daily. 2. Carvedilol 6.25 V q.12. 3. Doxycycline 125 mcg p.o. q.a.m. 4. Crestor 20 mg p.o. at bedtime. 5. Guaifenesin. 6. Amlodipine 10 mg p.o. daily. 7. Insulin 20 units subcutaneous daily. Briefly, Mr. Weber got admitted, mainly because of uncontrolled diabetes mellitus with glucose of 500. He was adequately treated with insulin. However, during the hospital course, he was very orthostatic and dizzy, which we attributed to intravascular depletion. He was adequately hydrated and his symptoms all got better. We have discontinued his Lasix, as well as his aldosterone and losartan. We have advised that he hydrate himself well and be consistent and compliant with his insulin regimen and follow up with his primary care within a week before he resumes all his other medications, if there is the need. We have added amlodipine for better blood pressure control. TIME SPENT FOR DISCHARGE: 38 minutes. cc: Andrew Silva MD MTDRj
== END 2019-07-30 15:54 | disposition home or self-care (01) | DRG 638 ==
LOC: ED 11:50 → EDIPHOLD 18:55 → SUATTDRO 18:55 → 3N 21:51
PROVIDERS: ATTEND Internal Medicine